=== PATIENT | male | born 1925 | race Caucasian/White ===

== ENCOUNTER → 2016-03-01 | Outpatient (CLI) | payer MEDICARE, BC ==
--- NOTE | 2016-03-01 15:14 | RADRPT ---
PROCEDURE: XR Pelvis and Hips. CLINICAL INDICATION: Pelvic pain. Bilateral hip pain. TECHNIQUE: Five views. Frontal pelvis. Frontal and lateral right hip. Frontal and lateral left hip. COMPARISON: 05/13/2014. FINDINGS: There is no fracture or dislocation. The soft tissues are normal. There are severe degenerative changes of both hips with large osteophytes and joint space narrowing, slightly worse than seen previously. There are degenerative changes of the lower lumbar spine. There is no lytic or blastic lesion. There is a stimulator device overlying the lower right hip. IMPRESSION: 1. Severe degenerative changes of the hips, slightly worse than seen previously. 2. Degenerative changes of the lower lumbar spine. 3. Stimulator device overlying the lower right hip. RPTAT: QQ .Josesito Ding MD, MD Date Time Electronically viewed and signed by .Josesito Ding MD, MD on 03/01/2016 15:14 .R/
== END | disposition home or self-care (01) ==
LOC: HKI 14:13
PROVIDERS: ATTEND Orthopaedic Surgery
DX: M16.0 Bilateral primary osteoarthritis of hip (principal); M17.0 Bilateral primary osteoarthritis of knee; M51.36 Other intervertebral disc degeneration, lumbar region; M54.16 Radiculopathy, lumbar region
CPT/HCPCS: 73523; G0463

== ENCOUNTER → 2016-03-29 | Outpatient (CLI) | payer MEDICARE, BC ==
[~2016-03-29] MED LIST: ATOR10TA65 PO; VIT1TABL85 PO
--- NOTE | 2016-03-29 11:59 | RADRPT ---
PROCEDURE: XR pelvis/left hip. CLINICAL INDICATION: Hip pain TECHNIQUE: AP pelvis/AP and lateral left hip views performed. COMPARISON: No prior studies are available for comparison. FINDINGS: There is a stimulator implant overlying the right hip. There is severe bilateral hip osteoarthrosis. This is associated with joint space narrowing, subchon dral sclerosis, subchondral cyst formation and osteophytosis. There is severe lower lumbar degenerat angle disk disease There is normal osseous mineralization. No fractures or osseous lesions are ident ified. The soft tissues are unremarkable. IMPRESSION: Severe bilateral hip osteoarthrosis. Severe lower lumbar degenerative disk disease RPTAT: HGDB .Gerber Montalvo MD, MD Date Time Electronically viewed and signed by .Gerber Montalvo MD, on 03/29/2016 11:59 .B/
== END | disposition home or self-care (01) ==
LOC: HKI 10:23
PROVIDERS: ATTEND Orthopaedic Surgery
DX: Z01.818 Encounter for other preprocedural examination (principal); M16.0 Bilateral primary osteoarthritis of hip; M17.0 Bilateral primary osteoarthritis of knee; M51.36 Other intervertebral disc degeneration, lumbar region; M54.16 Radiculopathy, lumbar region
CPT/HCPCS: 73502; G0463

== ENCOUNTER 2016-04-04 05:50 | Inpatient (IN) | payer MEDICARE, BC ==
[2016-04-03 09:44] VITALS: BMI 25.4
[2016-04-04] VITALS (24 sets, daily range): BP systolic 109–159; BP diastolic 58–86; PULSE 50–62; RESP 10–18; Ht 182.9 cm; Wt 84.1 kg
[~2016-04-04] VITALS: Ht 182.9 cm; Wt 84.1 kg
[~2016-04-04 05:50] MED LIST changes: -VIT1TABL85 PO
[2016-04-04] MEDS ORDERED: CELECOXIB 400 MG PO X1 DOSE PO ONE (06:00)
[2016-04-04] MEDS ORDERED: LACTATED RINGER'S 1,000 ML IV SCH (06:00)
[2016-04-04] MEDS ORDERED: oxyCODONE (CR) 10 MG TAB [oxyCONTIN] X1 DOSE PO ONE (06:00)
[2016-04-04] MEDS ORDERED: CEFAZOLIN 2GM/50 ML (PMX) 50 ML X1 BEFORE INCISION IVPB ONE (06:00)
[2016-04-04] MEDS ORDERED: traMADOL 50 MG TAB X 1 DOSE PO ONE (06:00)
[2016-04-04] MEDS ORDERED: TRANEXAMIC ACID IV ONE (06:00)
[2016-04-04] MEDS ORDERED: SOD CHLORIDE 0.9% IV ONE (06:00)
[2016-04-04] MEDS ORDERED: PAIN COCKTAIL-CEFUROXIME IRR SCH ×7 (06:30)
[2016-04-04] MEDS ORDERED: PREGABALIN 300 MG PO X1 PO ONE (06:30)
[2016-04-04] MEDS ORDERED: ATOR10TA65 PO (06:38)
[2016-04-04] MEDS ORDERED: VIT1TABL85 PO (06:38)
[2016-04-04] MEDS ORDERED: BACITRACIN 50000 UNITS INJ ONE (06:42)
[2016-04-04] MEDS ORDERED: PROPOFOL 0 ML ONE (06:52)
[2016-04-04] MEDS ORDERED: ONDANSETRON 4 MG INJ ONE (06:52)
[2016-04-04] MEDS ORDERED: DEXAMETHASONE 4 MG/ML 1 ML INJ ONE (06:52)
[2016-04-04] MEDS ORDERED: METOCLOPRAMIDE 10 MG INJ ONE (06:52)
[2016-04-04] MEDS ORDERED: POLYMYXIN B 500000 UNIT INJ ONE (06:53)
[2016-04-04] MEDS ORDERED: SODIUM CL BACTERIOSTATIC 30 ML INJ ONE (06:53)
[2016-04-04] MEDS ORDERED: VANCOMYCIN 1 GM INJ ONE (06:53)
[2016-04-04] MEDS ORDERED: HEPARIN 1000 UNITS/ML 10 ML INJ ONE (06:58)
[2016-04-04] MEDS ORDERED: BUPIVACAINE LIPOSOME/PF 266 MG/20 ML VIAL INFIL SCH (07:00)
[2016-04-04] MEDS ORDERED: TRANEXAMIC ACID 840 MG in SOD CHLORIDE 0.9% 100 ML IVPB SCH (07:00)
[2016-04-04] MEDS ORDERED: EXPAREL NOTE (BUPIVICAINE LIPOSOMAL) XX SCH (07:00)
[2016-04-04] MEDS ORDERED: MIDAZOLAM 1 MG/ML 2 ML INJ ONE (07:03)
--- NOTE | 2016-04-04 07:04 | HPN ---
Date/Time of Note Date/Time of Note DATE: 04/04/16 TIME: 07:04 Interval H&P Admission Note Pt. seen H&P reviewed: No system changes SAVANNAH BRITO PA-C Apr 04, 2016 07:04
[2016-04-04 07:38] LABS: ADD UMIC YES; URINE BILIRUBIN (Dip) NEGATIVE (NEGATIVE); URINE BLOOD (Dip) NEGATIVE (NEGATIVE); URINE COLOR LT. YELLOW (YELLOW); URINE GLUCOSE (Dip) NEGATIVE (NEGATIVE); URINE KETONES (Dip) NEGATIVE (NEGATIVE); URINE LEUKOCYTE ESTERASE (Dip) TRACE (NEGATIVE); URINE NITRITE (Dip) NEGATIVE (NEGATIVE); URINE TOTAL PROTEIN (Dip) NEGATIVE (NEGATIVE); URINE UROBILINOGEN (Dip) 0.2 E.U./dL (0.1-1.0)
[2016-04-04] MEDS ORDERED: PROPOFOL 100 ML ONE (07:54)
[2016-04-04] MEDS ORDERED: EPHEDrine SULFATE 50 MG/5 ML SYG ONE (07:54)
[2016-04-04 08:10] LABS: BACTERIA,URINE RARE; URINE RBCS NONE SEEN /HPF (0)
[2016-04-04] MEDS ORDERED: PROPOFOL 20 ML ONE (09:44)
[2016-04-04] MEDS ORDERED: DIPHENHYDRAMINE 50 MG INJ IV PRN (10:00)
[2016-04-04] MEDS ORDERED: MEPERIDINE 25 MG INJ IV PRN (10:00)
[2016-04-04] MEDS ORDERED: ONDANSETRON 4 MG INJ IV PRN ×2 (10:00→10:30)
[2016-04-04] MEDS ORDERED: OXYCODONE/ACETAMINOPHEN (5/325) TAB PO PRN ×2 (10:00)
[2016-04-04] MEDS ORDERED: METOCLOPRAMIDE 10 MG INJ IV PRN (10:00)
[2016-04-04] MEDS ORDERED: HYDROmorphONE (0.2 MG/ML) 10ML SYG IV PRN ×3 (10:00)
[2016-04-04] MEDS ORDERED: BISACODYL 10 MG SUPP PR PRN (10:30)
[2016-04-04] MEDS ORDERED: oxyCODONE 5 MG TAB PO PRN ×2 (10:30)
[2016-04-04] MEDS ORDERED: NACL 0.9% 3 ML SYG IV SCH (10:30)
[2016-04-04] MEDS ORDERED: ASPIRIN (EC) 325 MG TAB PO ONE (10:30)
[2016-04-04] MEDS ORDERED: DIPHENHYDRAMINE 25 MG CAP PO PRN (10:30)
[2016-04-04] MEDS ORDERED: NA PHOSPHATE/BIPHOS 133 ML ENEMA PR PRN (10:30)
[2016-04-04] MEDS ORDERED: HYDROmorphONE 1 MG/ML SYG IV PRN (10:30)
--- NOTE | 2016-04-04 10:40 | OPPN ---
Date/Time of Note Date/Time of Note DATE: 04/04/16 TIME: 10:38 Operative/Procedure Note Dictation # [id number] Pre-Operative Diagnosis Left Hip OA Post-Operative Diagnosis Same Procedure Left Anterior EUSEBIO Surgeon: GEORGIA RUSSELL MD Heel Cutter: SAVANNAH BRITO PA-C Anesthesiologist: SOPHIA FELIX MD Findings Severe OA Blood Usage/Administration 150 cc autologous cell saver blood Implants/Grafts Depuy EUSEBIO Estimated blood loss: other Drains Hemovac x 1 Specimens Femoral head Complications: None Anesthesia type: spinal GEORGIA RUSSELL MD Apr 04, 2016 10:40
--- NOTE | 2016-04-04 10:41 | PN ---
Date/Time of Note Date/Time of Note DATE: 04/04/16 TIME: 10:39 Assessment/Plan Lines/Catheters IV Catheter Type (from Nrsg): Peripheral IV Assessment/Plan Assessment/Plan Stable in PACU, s/p left anterior EUSEBIO -cont abx -pain meds -ASA/SCDs for DVT prophylaxis -OOB with PT -check AM labs -d/c rojas in AM XR of the left hip is pending at this time Subjective 24 Hr Interval Summary Doing well in PACU. Complaining of mild pain. Moving all extremities. Drain inadvertently pulled out upon transfer of patient. Exam/Review of Systems Vital Signs Vitals Vital Signs Date Time Temp Pulse Resp B/P Pulse Ox O2 Delivery O2 Flow Rate FiO2 04/04/16 06:39 97.2 56 18 150/77 97 Room Air Exam Free Text/Dictation Dressing dry Incision clean, dry, and intact without redness or drainage 5/5 Quadriceps, Tibialis Anterior, EHL, Gastroc, Soleus, Peroneals Normal sensation Palpable DT/PT, CR <2 sec No distal edema SAVANNAH BRITO PA-C Apr 04, 2016 10:41
[2016-04-04] MEDS: CEFAZOLIN 2 GM/50 ML (PMX) 50 ML IVPB SCH ×2 (11:16→18:55)
--- NOTE | 2016-04-04 11:19 | OPR ---
DATE OF OPERATION: 04/04/2016 PREOPERATIVE DIAGNOSIS: Left hip osteoarthritis. POSTOPERATIVE DIAGNOSIS: Left hip osteoarthritis. OPERATION PERFORMED: Left anterior total hip arthroplasty. SURGEON: Georgia Brown MD STREET FLUSHER DRIVER: HARRY Mendenhall COMPONENTS USED: DePuy size 56 mm Gription pinnacle cup, 56/36 neutral AltrX polyethylene liner, size 7 high offset Actis stem, 36+ 5 ceramic head. ANESTHESIA: Spinal plus general endotracheal intubation plus paratracheal injection. ANESTHESIOLOGIST: Dr. Granados ESTIMATED BLOOD LOSS: 400 cc INTRAVENOUS FLUIDS: Crystalloid 2 L and 150 mL of autologous Cell Saver blood. SPECIMENS: Femoral head. DRAINS: Hemovac x1. COMPLICATIONS: None. DISPOSITION: The patient tolerated the procedure well and was taken to the recovery room in stable condition. INDICATIONS: The patient is an 89-year-old gentleman who has had progressive worsening pain in the left hip with radiographic evidence of severe osteoarthritis. He has failed nonsurgical means of treatment to control his pain, including activity modifications, pain medications and ambulatory assist devices. Despite these measures, he has had worsening pain and I felt he would benefit from a total hip arthroplasty through an anterior approach. I felt the patient would benefit from a total hip arthroplasty through an anterior approach. The risks, benefits, and alternatives of the procedure were explained in detail to the patient. I explained the risks of the surgery to include, but not be limited to: bleeding and possible need for blood transfusion; infection; pain; stiffness; neurovascular injury with possible numbness, weakness, and/or paralysis anywhere from the hip down to the toes; fracture; instability; dislocation; leg length inequality; wear and/or loosening of the prosthesis and possible need for future revision; blood clots; pulmonary embolism; and anesthetic complications such as heart attack, stroke, GI bleed, pneumonia, and/ or . Ample time was allowed for the patient to ask questions, all of which were addressed and answered. The patient understood the risks involved and wished to proceed. Informed consent was signed prior to the procedure. PROCEDURE: The patient's left hip was initialed with a marking pen in the preoperative area to identify the correct operative site. The patient was brought to the operating room and transferred from the [facility] to the [facility] where a spinal anesthetic was administered. The patient was then anesthetized and intubated. A Alexander catheter was placed. Both feet were placed into well-padded boots which were then placed into the leg holders of the traction booms. A timeout was performed to confirm that the left side was the correct operative site. The patient was given 2 g of intravenous Ancef within one hour prior to the procedure. The operative hip was prepped and draped in the usual sterile fashion. A 10 cm oblique incision was made over the anterior aspect of the hip and carried down through subcutaneous tissue and fat with sharp dissection. The tensor fascia kenneth was incised along the length of the wound. The tensor fascia muscle was retracted laterally and the sartorius medially. The anterior circumflex vessels were identified and tied off with 2-0 silk suture and coagulated with the [employer] agricultural economics teacher. The rectus femoris was elevated off the anterior capsule and an anterior capsulectomy performed. A femoral neck osteotomy was made and the head removed from the acetabulum. The acetabulum was denuded of cartilage circumferentially, as was the femoral head. Retractors were placed around the acetabulum. The remnants of the labrum and ligamentum teres were excised. I reamed the acetabulum to the medial wall and then went into an anatomic position and increased the reamer size in 2 mm increments until I got a good bite and was down to bleeding subchondral bone. The [place] cup was opened and impacted into the acetabulum and sat flush circumferentially, getting a good bite. C-arm imaging showed it had about 40 to 45 degrees of abduction and 20 degrees of anteversion. The real liner was opened and impacted into the acetabulum and sat flush circumferentially. Attention was turned towards the femur. The operative leg was carefully lowered to the floor with the leg adducted. The foot was then externally rotated to approximately 110 degrees. A posteromedial release was performed to optimize exposure. The femoral hook was placed underneath the proximal femur and the hydraulic lift was then used to elevate the femur up out of the wound. The christiano cutter osteotome was used to remove the remaining overhanging greater trochanter. The femur was then broached, going up in one size increments until it sat flush with the neck cut and a stable fit was achieved. The trial neck and head were assembled and reduced into the acetabulum. Fluoroscopic imaging showed the components to be in good position and the leg lengths and offsets to be equal. At this point, the trial was dislocated and the trial broach removed. The canal was irrigated and dried. The real stem was opened and impacted into the femur. The trunnion was irrigated and dried, and the real femoral head was impacted onto the trunnion, and reduced into the acetabulum. The soft tissues were infiltrated with a mixture of 150 mg of 0.5% Bupivacaine, 8 mg of Duramorph, 300 mcg of epinephrine, 30 mg of Toradol, 100 mcg of clonidine, 750 mg of cefuroxime and 86 mL of normal saline, followed by an injection of 266 mg of liposomal Bupivacaine. At this point the hip was irrigated with a mixture of betadine/saline and then antibiotic saline with pulsatile lavage. A Hemovac drain was placed in the deep portion of the wound and brought out the anterolateral thigh. There was good hemostasis. The tensor fascia kenneth was repaired with a running #1 Vicryl. The deep fat layer was irrigated and closed with 2-0 Stratafix and the subcutaneous layer closed with 3 -0 Stratafix and the skin was sealed with Prineo Dermabond. The drain was secured with 3-0 nylon. The sponge and needle counts were correct at the end of the case. The wound was covered with an occlusive dressing. The patient was awakened, extubated, and taken to the recovery room in stable condition. Dictated By: GEORGIA ANGULO/KAYLAN Conf#: [id number] DID#: [id number] MTDD
--- NOTE | 2016-04-04 11:36 | CONS ---
DATE OF ADMISSION: 04/04/2016 DATE OF CONSULTATION: 04/04/2016 TYPE OF CONSULTATION: Thank you very much for allowing me to evaluate this 89-year-old male who jus t underwent left total hip arthroplasty. HISTORICAL EVENTS: As you well know, this patient has had progressive disabling pain involving his above-mentioned hip and for this elected to proceed with surgical intervention. In recovery, he is comfortable without cough, wheezing, shortness of breath, nausea, vomiting, abdominal or chest pain. PAST MEDICAL HISTORY: Unremarkable except for hyperlipidemia, without history of diabetes, coronary artery disease or hypertension. Positive for degenerative arthritis and spinal stenosis, having a lumbar back stimulator. MEDICATIONS: Include Lipitor 10 mg per day. PHYSICAL EXAMINATION: GENERAL: Reveals a spry male in no acute distress. VITAL SIGNS: BP 122/80, pulse 70, respirations are 20, he was afebrile. EYES: Extraocular muscles were full. NOSE, MOUTH, AND THROAT: Normal. NECK: Supple. There was no jugular venous distention, thyroid enlargement or adenopathy. Carotids 2+. LUNGS: Clear. HEART: Rhythm regular, I/ systolic murmur. No third or fourth sound. ABDOMEN: Nontender. Liver and spleen were not palpable. No masses or tenderness were noted. EXTREMITIES: No edema. Calves nontender. IMPRESSION: 1. Stable postop left hip replacement. 2. History of hyperlipidemia. We will continue statin. 3. Will evaluate daily for signs and symptoms of thromboembolic disease despite appropriate DVT pro phylaxis. Dictated By: GLENROY KAPADIA/KAYLAN Conf#: [id number] DID#: [id number]
[2016-04-04] MEDS: ACETAMINOPHEN 1000MG/100ML IV 100 ML IVPB SCH ×3 (11:44→23:38)
[2016-04-04] MEDS: traMADol 50 MG TAB PO SCH ×3 (11:46→23:38)
--- NOTE | 2016-04-04 12:23 | RADRPT ---
PROCEDURE: XR Pelvis. CLINICAL INDICATION: Hip pain TECHNIQUE: Single AP view performed. COMPARISON: No prior studies are available for comparison. FINDINGS: There is a postoperative left total hip replacement. There is no evidence of loosening of the prosth esis. There is severe right hip osteoarthrosis. This is associated with joint space narrowing, subchondral sclerosis, subchondral cyst formation and osteophytosis. There is normal osseous mineralization. No fractures or osseous lesions are identified. There are postoperative soft tissue changes. Stimul ator implant overlying right hip. IMPRESSION: Postoperative left total hip replacement Postoperative soft tissue changes Severe right hip osteoarthrosis. RPTAT: HGDB .Gerber Montalvo MD, MD Date Time Electronically viewed and signed by .Gerber Montalvo MD, on 04/04/2016 12:23 .B/
--- NOTE | 2016-04-04 12:25 | RADRPT ---
PROCEDURE: XR left hip. CLINICAL INDICATION: Hip pain/total hip replacement TECHNIQUE: AP view available for review. COMPARISON: None available FINDINGS: There is a postoperative left total hip replacement. There is no evidence of loosening of the prosth esis. There is normal mineralization, architecture and alignment. No fractures are identified. No osseous lesions are present. The joints are unremarkable. There are postoperative soft tissue sequeira ges. IMPRESSION: Postoperative left total hip replacement Postoperative soft tissue changes Otherwise an unremarkable examination RPTAT: HGDB .Gerber Montalvo MD, MD Date Time Electronically viewed and signed by .Gerber Montalvo MD, MD on 04/04/2016 12:24 .B/
[2016-04-04 12:37] LABS: HEMATOCRIT 35.6 % (42.0-52.0); HEMOGLOBIN 11.9 g/dl (14.0-18.0)
[2016-04-04 12:48] LABS: CREATININE 0.93 mg/dl (0.61-1.24); POTASSIUM 4.1 mmol/L (3.5-5.1)
[2016-04-04 12:49] LABS: CALCIUM 8.4 mg/dl (8.4-10.2)
[2016-04-04] MEDS ORDERED: TRANEXAMIC ACID 840 MG in SOD CHLORIDE 0.9% 100 ML IVPB ONE ×3 (13:30→22:30)
--- NOTE | 2016-04-04 13:45 | RADRPT ---
PROCEDURE: Left hip x-rays series CLINICAL INDICATION: Arthroplasty TECHNIQUE: 14 images obtained intraoperatively during a hip arthroplasty procedure. COMPARISON: None available FINDINGS: 14 x-ray images were obtained intraoperatively for localization during a hip hemiarthroplasty. 48 s econds of fluoroscopy time was utilized during the procedure. There is an unremarkable postoperative left total hip replacement.. IMPRESSION: 14 x-ray images obtained intraoperatively. 48 seconds of fluoroscopy time was utilized Unremarkable postoperative left total hip replacement .Gerber Montalvo MD, MD Date Time Electronically viewed and signed by .Gerber Montalvo MD, on 04/04/2016 13:45 .B/
[2016-04-04] MEDS: LACTATED RINGER'S 1,000 ML IV SCH ×2 (16:45→17:45)
[2016-04-04] MEDS: PANTOPRAZOLE (EC) 40 MG TAB PO SCH (17:51)
[2016-04-04] MEDS ORDERED: ATORVASTATIN 10 MG TAB PO SCH (21:00)
[2016-04-04] MEDS: PREGABALIN 25 MG CAP PO SCH (21:05)
[2016-04-04] MEDS: DOCUSATE SODIUM 100 MG CAP PO SCH (21:05)
[2016-04-04] MEDS: ATORVASTATIN 10 MG TAB PO SCH (21:05)
[2016-04-05] VITALS: BP 100/55; RESP 18
[2016-04-05] MEDS: CEFAZOLIN 2 GM/50 ML (PMX) 50 ML IVPB SCH (02:27)
[2016-04-05] MEDS: LACTATED RINGER'S 1,000 ML IV SCH ×3 (05:25→18:28)
[2016-04-05] MEDS: ACETAMINOPHEN 1000MG/100ML IV 100 ML IVPB SCH (05:26)
[2016-04-05] MEDS: traMADol 50 MG TAB PO SCH ×4 (05:27→23:37)
[2016-04-05] MEDS: PANTOPRAZOLE (EC) 40 MG TAB PO SCH ×2 (05:28→18:31)
[2016-04-05 05:40] LABS: HEMATOCRIT 32.5 % (42.0-52.0)
[2016-04-05 06:18] LABS: POTASSIUM 4.3 mmol/L (3.5-5.1)
[2016-04-05 06:20] LABS: CREATININE 0.78 mg/dl (0.61-1.24)
[2016-04-05 06:21] LABS: CALCIUM 8.2 mg/dl (8.4-10.2)
[2016-04-05 06:28] VITALS: BP 121/58; PULSE 56; RESP 18
--- NOTE | 2016-04-05 07:01 | PREOPHP ---
DATE OF ADMISSION: 04/04/2016 REQUESTING PHYSICIAN: Dr. Evaristo Russell REASON FOR CONSULTATION: Medical clearance. HISTORY OF PRESENT ILLNESS: Mr. Smith is an 89-year-old male who is scheduled for left total hip replacement for degenerative joint disease by Dr. Russell. He has a history of degenerative arthrit is of both hips, left worse than right, and walks with a cane. He is off anti-inflammatories for th e past 7 days. PAST MEDICAL HISTORY: Hypercholesterolemia and is on Lipitor 10 mg daily. ALLERGIES TO MEDICATIONS: NONE. PAST MEDICAL ILLNESSES: Hypercholesterolemia, degenerative joint disease. OPERATIONS: In the past, bilateral cataract extractions, suprapubic prostatectomy for BPH and biops y of his thyroid for a nodule in 2013. PERSONAL HABITS: Tobacco none. Alcohol social. Caffeine- 1 to 2 cups per day. FAMILY HISTORY: Noncontributory. Patient's mother at 90 and father +90. He has 3 chil dren living and healthy. REVIEW OF SYSTEMS: GENERAL: Unremarkable. HEAD: No headaches or dizziness. EARS: Diminished hearing bilaterally. NOSE, MOUTH AND THROAT: Unremarkable. EYES: Reading intact with reading glasses. CARDIOPULMONARY: No chest pain, shortness of breath or palpitations. GI: No indigestion. Has 2 bowel movements per day. : Nocturia x2 status post suprapubic prostatectomy. MUSCULOSKELETAL: See present illness. HEME: Negative. PHYSICAL EXAMINATION: VITAL SIGNS: Blood pressure 150/90, BMI 26, weight 185 pounds, height 72 inches, temperature 97.9. HEAD: Normocephalic. EYES: There is ptosis of the left upper eyelid, otherwise negative. EARS: Canals clear. Drums normal. Gross hearing intact. NOSE, MOUTH AND THROAT: No abnormalities. NECK: There is a 5 cm lipoma on the neck. CHEST: Clear to auscultation and percussion. HEART: Regular rhythm. No murmurs, rubs, heaves or gallops. ABDOMEN: No hepatosplenomegaly or masses. Bowel sounds normoactive. No tenderness. GENITOURINARY: Negative 05/2015. MUSCULOSKELETAL: Atrophy left calf. Pain on internal and external rotation both hips with decrease d range of motion. NEUROLOGIC: Absent Achilles. Reflexes otherwise no focal deficits. DIAGNOSTIC STUDIES: Chest x-ray is within normal limits. 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 LABORATORY STUDIES: Are attached and are stable. PTT Pro time normal. CBC within normal limits. Chemistry panel normal. IMPRESSION: 1. Degenerative arthritis, both hips for left total hip arthroplasty. 2. Hypercholesterolemia. The patient is cleared for surgery and anesthesia per Dr. Sandoval. Urinalysis was not done and will b e done at the hospital. Dr.Gerald Werner dictaing Pre-Op HP for Dr. Nabil Sandoval for Dr. Evaristo Russell. Dictated By: EVARISTO RUSSELL MD EZ/NTS Conf#: [id number] DID#: [id number]
--- NOTE | 2016-04-05 07:35 | PDOCDIS ---
Discharge Instructions DIAGNOSIS Discharge Diagnosis: s/p left EUSEBIO CONDITION Patient Condition: Good HOME CARE INSTRUCTIONS: Diet Instructions: Regular ACTIVITY: Activity Restrictions: Slowly Increase Activity Rest between Activity Avoid heavy lifting No Sexual Activity Do not operate Machinery Do not operate Power Tool Avoid Heavy Housework Keep Limb Elevated FOLLOW UP/APPOINTMENTS Appointments follow up with Dr. Brown in the office on 04/15/16 OTHER ORDERS: Other Orders: S/P Anterior EUSEBIO Physical Therapy: Three times per week at home x 2 weeks Daily in Rehab/SNF (if applicable) WB STATUS: WBAT Strengthening exercises for both upper and un-operated lower extremities. 1. Gait training with front wheeled walker 2. Wide base gait, no pivot turns. 3. Abductor strengthening. 4. Quadriceps and hamstring strengthening. 5. May switch to cane in contra lateral hand 6 weeks after surgery. 6. Physical Therapy can open case if nursing is not available. 7. Ice Packs while at rest to surgical wound for 20 minutes, 3 times/day. 8. Patient requires mobile SCDs to reduce risk of developing DVT following EUSEBIO. Patient will use the mobile SCDs for 30 days postoperatively. Hip Precautions: No posterior hip precautions. Bathing assistance by home health aide twice weekly if Medicare patient. Occupational Therapy: Evaluation for assistive devices and ADL training. Wound Care: Keep incision dry & covered with Tegaderm until first visit with Dr. Brown Anticoagulation Orders: Enteric Coated Aspirin 325 mg po bid x 6 weeks from date of surgery Follow-up:Call for an appointment with Dr. Brown in 1 week after discharged from hospital at DME Orders: ANDREWS, 3-in-1 Commode, Mobile SCDs SAVANNAH BRITO PA-C Apr 05, 2016 07:35
[2016-04-05] MEDS ORDERED: PANT40TA4 PO (07:36)
[2016-04-05] MEDS ORDERED: ASPI325T32 PO (07:36)
[2016-04-05] MEDS ORDERED: TRAM50TA2 PO (07:36)
[2016-04-05] MEDS ORDERED: HYDR-906 PO (07:36)
[2016-04-05 08:07] VITALS: BP 112/56; RESP 18
--- NOTE | 2016-04-05 08:11 | PN ---
Date/Time of Note Date/Time of Note DATE: 04/05/16 TIME: 08:09 Assessment/Plan Lines/Catheters IV Catheter Type (from Nrsg): Peripheral IV Alexander in Place (from Nrsg): Yes Assessment/Plan Assessment/Plan Stable POD #1, s/p left anterior EUSEBIO -D/C abx -pain meds -ice packs over incision to minimize ecchymosis and swelling -ASA/SCDs -OOB with PT -check AM labs -d/c planning. Possible d/c versus home tomorrow or friday Subjective 24 Hr Interval Summary Doing well. No acute overnight events. Denies any pain. Unclear if he began PT yesterday as patient does not recall but there is a PT note stating he walked 30ft. VSS, afebrile. Exam/Review of Systems Vital Signs Vitals Vital Signs Date Time Temp Pulse Resp B/P Pulse Ox O2 Delivery O2 Flow Rate FiO2 04/05/16 08:07 97.8 57 18 112/56 99 04/05/16 06:28 Nasal Cannula 2.0 Intake and Output 04/04/16 04/04/16 04/05/16 15:00 23:00 07:00 Intake Total 2150 ml 308.4 ml 1750 ml Output Total 620 ml 350 ml 1100 ml Balance 1530 ml -41.6 ml 650 ml Exam Free Text/Dictation Moderate ecchymosis around the incision, no redness or warmth to touch Dressing dry Incision clean, dry, and intact without redness or drainage 5/5 Quadriceps, Tibialis Anterior, EHL, Gastroc, Soleus, Peroneals Normal sensation Palpable DT/PT, CR <2 sec No distal edema Results Result Diagram: 04/05/16 0413 04/05/16 0413 SAVANNAH BRITO PA-C Apr 05, 2016 08:11
--- NOTE | 2016-04-05 08:40 | CONS ---
Date/Time of Note Date/Time of Note DATE: 04/05/16 TIME: 08:39 Assessment/Plan Assessment/Plan Additional Assessment/Plan 1. Stable postop left hip replacement, labs rev 2. History of hyperlipidemia, statin has been cont Consultation Date/Type/Reason Admit Date/Time Apr 04, 2016 at 05:50 Initial Consult Date Detailed Summary Respiratory: No pleuritic pain, No shortness of breath Cardiovascular: No chest pain Gastrointestinal: no complaints Genitourinary: other (rojas in place) Musculoskeletal: bone/joint pain (mild left hip pain) Exam/Review of Systems Vital Signs Vitals Vital Signs Date Time Temp Pulse Resp B/P Pulse Ox O2 Delivery O2 Flow Rate FiO2 04/05/16 08:07 97.8 57 18 112/56 99 04/05/16 06:28 Nasal Cannula 2.0 Intake and Output 04/04/16 04/04/16 04/05/16 15:00 23:00 07:00 Intake Total 2150 ml 308.4 ml 1750 ml Output Total 620 ml 350 ml 1100 ml Balance 1530 ml -41.6 ml 650 ml Exam Neck: No jvd Respiratory: clear to auscultation Cardiovascular: regular rate and rhythm Gastrointestinal: soft Extremities: No edema (and no calf tend bilat) Results Result Diagram: 04/05/16 0413 04/05/16 0413 Results 24 hrs Laboratory Tests Test 04/04/16 12:21 04/05/16 04:13 Anion Gap 12 12 Blood Urea Nitrogen 19 17 Calcium Level 8.4 8.2 L Carbon Dioxide Level 26 26 Chloride Level 107 105 Creatinine 0.93 0.78 Glucose Level 126 104 Hematocrit 35.6 L 32.5 L Hemoglobin 11.9 L 11.0 L Potassium Level 4.1 4.3 Sodium Level 141 139 Medications Medications Current Medications Miscellaneous Information 1 ea NOTE XX ; Start 04/04/16 at 07:00; Stop 04/08/16 at 06:59 Atorvastatin Calcium 10 mg 10 mg QHS PO Last administered on 04/04/16 21:05; Admin Dose 10 MG; Start 04/04/16 at 21:00 Lactated Ringer's (Lr) 1,000 ml @ 125 mls/hr Q8H IV Last administered on 05:25; Admin Dose 125 MLS/HR; Start 04/04/16 at 10:28 Celecoxib 200 mg 200 mg DAILY PO ; Start 04/05/16 at 09:00 Acetaminophen (Ofirmev 1000mg/ 100ml Iv) 100 ml @ 400 mls/hr Q6 IVPB Last administered on 04/05/16 05:26; Admin Dose 400 MLS/HR; Start 04/04/16 at 12:00 ; Stop 04/05/16 at 11:59 Tramadol HCl (Ultram) 50 mg Q6 PO Last administered on 04/05/16 05:27; Admin Dose 50 MG; Start 04/04/16 at 12:00; Stop 04/07/16 at 11:59 Oxycodone HCl (Roxicodone) 5 mg Q4H PRN PO PAIN LEVEL 1-3; Start 04/04/16 at 10 :30 Oxycodone HCl (Roxicodone) 10 mg Q4H PRN PO PAIN LEVEL 4-7; Start 04/04/16 at 10:30 Hydromorphone HCl (Dilaudid) 1 mg Q3H PRN IV PAIN LEVEL 8-10; Start 04/04/16 at 10:30 Ondansetron HCl (Zofran Inj) 4 mg Q6H PRN IV NAUSEA AND/OR VOMITING; Start at 10:30 Bisacodyl (Dulcolax Supp) 10 mg Q12H PRN [place] CONSTIPATION; Start 04/04/16 at 10: 30 Magnesium Hydroxide (Milk Of Mag) 30 ml BID PRN PO CONSTIPATION; Start at 10:30 Sodium Biphosphate/ Sodium Phosphate (Fleet Enema) 133 ml DAILY PRN [place] CONSTIPATION; Start 04/04/16 at 10:30 Docusate Sodium (Colace) 100 mg BID PO Last administered on 04/04/16 21:05; Admin Dose 100 MG; Start 04/04/16 at 21:00 Diphenhydramine HCl (Benadryl) 25 mg Q6H PRN PO PRURITUS; Start 04/04/16 at 10: 30 Aspirin (Ecotrin) 325 mg BID PO ; Start 04/05/16 at 09:00 Pregabalin (Lyrica) 50 mg BID PO Last administered on 04/04/16 21:05; Admin Dose 50 MG; Start 04/04/16 at 21:00 Pantoprazole (Protonix Tab) 40 mg BID@06,18 PO Last administered on 04/05/16t 05:28; Admin Dose 40 MG; Start 04/04/16 at 18:00 GLENROY XIONG MD Apr 05, 2016 08:40
[2016-04-05] MEDS: PREGABALIN 25 MG CAP PO SCH ×2 (09:00→20:16)
[2016-04-05] MEDS: ASPIRIN (EC) 325 MG TAB PO SCH ×2 (09:00→20:16)
[2016-04-05] MEDS: DOCUSATE SODIUM 100 MG CAP PO SCH ×2 (09:00→20:16)
[2016-04-05] MEDS: CELECOXIB 200 MG CAP PO SCH (09:00)
[2016-04-05 09:14] LABS: ADD UMIC YES; URINE BILIRUBIN (Dip) NEGATIVE (NEGATIVE); URINE BLOOD (Dip) TRACE (NEGATIVE); URINE COLOR LT. YELLOW (YELLOW); URINE GLUCOSE (Dip) NEGATIVE (NEGATIVE); URINE KETONES (Dip) NEGATIVE (NEGATIVE); URINE LEUKOCYTE ESTERASE (Dip) NEGATIVE (NEGATIVE); URINE NITRITE (Dip) NEGATIVE (NEGATIVE); URINE TOTAL PROTEIN (Dip) NEGATIVE (NEGATIVE); URINE UROBILINOGEN (Dip) 0.2 E.U./dL (0.1-1.0)
[2016-04-05 09:31] LABS: BACTERIA,URINE RARE
--- NOTE | 2016-04-05 12:55 | PN ---
Date/Time of Note Date/Time of Note DATE: 04/05/16 TIME: 12:53 Assessment/Plan VTE Prophylaxis VTE Prophylaxis Intervention: SCD's Lines/Catheters IV Catheter Type (from Nrs): Saline Lock Urinary Cath still in place: No Subjective 24 Hr Interval Summary Free Text/Dictation Aneshesia Note:A 89 year amle s/p left hip replacement under GA and spinl. POD# 1 doing well. no N/V hedach,e. pain is controlled. no inflammation or infection at back Exam/Review of Systems Vital Signs Vitals Vital Signs Date Time Temp Pulse Resp B/P Pulse Ox O2 Delivery O2 Flow Rate FiO2 04/05/16 08:45 Nasal Cannula 04/05/16 08:07 97.8 57 18 112/56 99 04/05/16 06:28 2.0 Intake and Output 04/04/16 04/04/16 04/05/16 14:59 22:59 06:59 Intake Total 2150 ml 308.4 ml 1750 ml Output Total 620 ml 350 ml 1100 ml Balance 1530 ml -41.6 ml 650 ml Results Result Diagram: 04/05/16 0413 04/05/16 0413 Results 24 hrs Laboratory Tests Test 04/05/16 04:13 04/05/16 05:30 Anion Gap 12 Blood Urea Nitrogen 17 Calcium Level 8.2 L Carbon Dioxide Level 26 Chloride Level 105 Creatinine 0.78 Glucose Level 104 Hematocrit 32.5 L Hemoglobin 11.0 L Potassium Level 4.3 Sodium Level 139 Urine Bacteria RARE Urine Bilirubin NEGATIVE Urine Clarity CLEAR Urine Color LT. YELLOW Urine Epithelial Cells RARE Urine Glucose NEGATIVE Urine Hemoglobin TRACE Urine Ketones NEGATIVE Urine Leukocyte Esterase NEGATIVE Urine Microscopic RBC 2-5 Urine Microscopic WBC 0-2 Urine Nitrite NEGATIVE Urine Specific [place] 1.010 Urine Total Protein NEGATIVE Urine Urobilinogen 0.2 E.U./dL Urine pH 6.0 Medications Medications Current Medications Miscellaneous Information 1 ea NOTE XX ; Start 04/04/16 at 07:00; Stop 04/08/16 at 06:59 Atorvastatin Calcium 10 mg 10 mg QHS PO Last administered on 04/04/16 21:05; Admin Dose 10 MG; Start 04/04/16 at 21:00 Lactated Ringer's (Lr) 1,000 ml @ 125 mls/hr Q8H IV Last administered on 05:25; Admin Dose 125 MLS/HR; Start 04/04/16 at 10:28 Celecoxib (Celebrex) 200 mg DAILY PO Last administered on 04/05/16 09:00; Admin Dose 200 MG; Start 04/05/16 at 09:00 Tramadol HCl (Ultram) 50 mg Q6 PO Last administered on 04/05/16 11:56; Admin Dose 50 MG; Start 04/04/16 at 12:00; Stop 04/07/16 at 11:59 Oxycodone HCl (Roxicodone) 5 mg Q4H PRN PO PAIN LEVEL 1-3; Start 04/04/16 at 10 :30 Oxycodone HCl (Roxicodone) 10 mg Q4H PRN PO PAIN LEVEL 4-7; Start 04/04/16 at 10:30 Hydromorphone HCl (Dilaudid) 1 mg Q3H PRN IV PAIN LEVEL 8-10; Start 04/04/16 at 10:30 Ondansetron HCl (Zofran Inj) 4 mg Q6H PRN IV NAUSEA AND/OR VOMITING; Start at 10:30 Bisacodyl (Dulcolax Supp) 10 mg Q12H PRN [place] CONSTIPATION; Start 04/04/16 at 10: 30 Magnesium Hydroxide (Milk Of Mag) 30 ml BID PRN [place] CONSTIPATION; Start at 10:30 Sodium Biphosphate/ Sodium Phosphate (Fleet Enema) 133 ml DAILY PRN [place] CONSTIPATION; Start 04/04/16 at 10:30 Docusate Sodium (Colace) 100 mg BID PO Last administered on 04/05/16 09:00; Admin Dose 100 MG; Start 04/04/16 at 21:00 Diphenhydramine HCl (Benadryl) 25 mg Q6H PRN PO PRURITUS; Start 04/04/16 at 10: 30 Aspirin (Ecotrin) 325 mg BID PO Last administered on 04/05/16 09:00; Admin Dose 325 MG; Start 04/05/16 at 09:00 Pregabalin (Lyrica) 50 mg BID PO Last administered on 04/05/16 09:00; Admin Dose 50 MG; Start 04/04/16 at 21:00 Pantoprazole (Protonix Tab) 40 mg BID@ PO Last administered on 2/17/17at 05:28; Admin Dose 40 MG; Start 04/04/16 at 18:00 SOPHIA FELIX MD Apr 05, 2016 12:55
[2016-04-05 19:15] VITALS: BP 126/58; RESP 20
[2016-04-05] MEDS: ATORVASTATIN 10 MG TAB PO SCH (20:16)
[2016-04-05] MEDS: MAGNESIUM HYDROXIDE 30ML CUP PO PRN (20:23)
[2016-04-06] MEDS: LACTATED RINGER'S 1,000 ML IV SCH ×3 (02:28→18:28)
[2016-04-06 05:10] LABS: HEMATOCRIT 32.3 % (42.0-52.0); HEMOGLOBIN 10.9 g/dl (14.0-18.0)
[2016-04-06 05:22] LABS: POTASSIUM 3.9 mmol/L (3.5-5.1)
[2016-04-06 05:25] LABS: CREATININE 0.78 mg/dl (0.61-1.24)
[2016-04-06 05:26] LABS: CALCIUM 8.2 mg/dl (8.4-10.2)
[2016-04-06] MEDS: traMADol 50 MG TAB PO SCH ×3 (06:32→18:00)
[2016-04-06] MEDS: PANTOPRAZOLE (EC) 40 MG TAB PO SCH ×2 (06:32→18:00)
[2016-04-06] MEDS: MAGNESIUM HYDROXIDE 30ML CUP PO PRN (06:35)
[2016-04-06 07:53] VITALS: BP 117/58; RESP 16
[2016-04-06] MEDS: CELECOXIB 200 MG CAP PO SCH (09:02)
[2016-04-06] MEDS: DOCUSATE SODIUM 100 MG CAP PO SCH ×2 (09:02→20:55)
[2016-04-06] MEDS: ASPIRIN (EC) 325 MG TAB PO SCH ×2 (09:02→20:55)
[2016-04-06] MEDS: PREGABALIN 25 MG CAP PO SCH ×2 (09:17→20:54)
[2016-04-06] MEDS ORDERED: HYDROCODONE/APAP (5/325) TAB PO PRN (11:00)
--- NOTE | 2016-04-06 11:00 | PN ---
Date/Time of Note Date/Time of Note DATE: 04/06/16 TIME: 10:58 Assessment/Plan Lines/Catheters IV Catheter Type (from Nrsg): Saline Lock Alexander in Place (from Nrsg): No Assessment/Plan Assessment/Plan Stable POD #2, s/p left anterior EUSEBIO -pain meds -ASA/SCDs for DVT prophylaxis -OOB with PT -dressing changed -switch oxycodone to hydrocodone for pain control -apply ice over the left hip -d/c planning. Will likely go home tomorrow Subjective 24 Hr Interval Summary Doing well. No acute overnight events. Mild pain. Walked 250 feet with PT. Denies f/c. VSS, afebrile. Would like to stay one more day for pain control. Exam/Review of Systems Vital Signs Vitals Vital Signs Date Time Temp Pulse Resp B/P Pulse Ox O2 Delivery O2 Flow Rate FiO2 04/06/16 07:53 97.3 64 16 117/58 95 04/05/16 08:45 Nasal Cannula 04/05/16 06:28 2.0 Intake and Output 04/05/16 04/05/16 04/06/16 15:00 23:00 07:00 Intake Total 720 ml 600 ml Output Total 300 ml Balance 420 ml 600 ml Exam Free Text/Dictation Dressing dry Ecchymosis and soft tissue swelling improving Incision clean, dry, and intact without redness or drainage 5/5 Quadriceps, Tibialis Anterior, EHL, Gastroc, Soleus, Peroneals Normal sensation Palpable DT/PT, CR <2 sec No distal edema Results Result Diagram: 04/06/1643904/06/16439 SAVANNAH BRITO PA-C Apr 06, 2016 11:00
--- NOTE | 2016-04-06 11:29 | CONS ---
Date/Time of Note Date/Time of Note DATE: 04/06/16 TIME: 11:28 Assessment/Plan Assessment/Plan Additional Assessment/Plan 1. Doing well post op left hip replacement 2. Mild diff voiding, will ck post void residual Consultation Date/Type/Reason Admit Date/Time Apr 04, 2016 at 05:50 Detailed Summary Respiratory: No cough, No shortness of breath Cardiovascular: No chest pain Gastrointestinal: no complaints, other (sl diff voiding) Musculoskeletal: bone/joint pain (mild-mod left hip pain) Exam/Review of Systems Vital Signs Vitals Vital Signs Date Time Temp Pulse Resp B/P Pulse Ox O2 Delivery O2 Flow Rate FiO2 04/06/16 07:53 97.3 64 16 117/58 95 04/05/16 08:45 Nasal Cannula 04/05/16 06:28 2.0 Intake and Output 04/05/16 04/05/16 04/06/16 15:00 23:00 07:00 Intake Total 720 ml 600 ml Output Total 300 ml Balance 420 ml 600 ml Exam Neck: No jvd Respiratory: clear to auscultation Cardiovascular: regular rate and rhythm Gastrointestinal: soft Extremities: No edema (and no calf tend) Results Result Diagram: 04/06/16 0440 04/06/16 0440 Results 24 hrs Laboratory Tests Test 04/06/16 04:40 Anion Gap 10 Blood Urea Nitrogen 19 Calcium Level 8.2 L Carbon Dioxide Level 29 Chloride Level 104 Creatinine 0.78 Glucose Level 104 Hematocrit 32.3 L Hemoglobin 10.9 L Potassium Level 3.9 Sodium Level 139 Medications Medications Current Medications Miscellaneous Information 1 ea NOTE XX ; Start 04/04/16 at 07:00; Stop 04/08/16 at 06:59 Atorvastatin Calcium 10 mg 10 mg QHS PO Last administered on 04/05/16 20:16; Admin Dose 10 MG; Start 04/04/16 at 21:00 Lactated Ringer's (Lr) 1,000 ml @ 125 mls/hr Q8H IV Last administered on 05:25; Admin Dose 125 MLS/HR; Start 04/04/16 at 10:28 Celecoxib (Celebrex) 200 mg DAILY PO Last administered on 04/06/16 09:02; Admin Dose 200 MG; Start 04/05/16 at 09:00 Tramadol HCl (Ultram) 50 mg Q6 PO Last administered on 04/06/16 06:32; Admin Dose 50 MG; Start 04/04/16 at 12:00; Stop 04/07/16 at 11:59 Oxycodone HCl (Roxicodone) 10 mg Q4H PRN PO PAIN LEVEL 4-7; Start 04/04/16 at 10:30 Hydromorphone HCl (Dilaudid) 1 mg Q3H PRN IV PAIN LEVEL 8-10; Start 04/04/16 at 10:30 Ondansetron HCl (Zofran Inj) 4 mg Q6H PRN IV NAUSEA AND/OR VOMITING; Start at 10:30 Bisacodyl (Dulcolax Supp) 10 mg Q12H PRN [place] CONSTIPATION; Start 04/04/16 at 10: 30 Magnesium Hydroxide (Milk Of Mag) 30 ml BID PRN PO CONSTIPATION Last administered on 04/06/16 06:35; Admin Dose 30 ML; Start 04/04/16 at 10:30 Sodium Biphosphate/ Sodium Phosphate (Fleet Enema) 133 ml DAILY PRN [place] CONSTIPATION; Start 04/04/16 at 10:30 Docusate Sodium (Colace) 100 mg BID PO Last administered on 04/06/16 09:02; Admin Dose 100 MG; Start 04/04/16 at 21:00 Diphenhydramine HCl (Benadryl) 25 mg Q6H PRN PO PRURITUS; Start 04/04/16 at 10: 30 Aspirin (Ecotrin) 325 mg BID PO Last administered on 04/06/16 09:02; Admin Dose 325 MG; Start 04/05/16 at 09:00 Pregabalin (Lyrica) 50 mg BID PO Last administered on 04/06/16 09:17; Admin Dose 50 MG; Start 04/04/16 at 21:00 Pantoprazole (Protonix Tab) 40 mg BID@ PO Last administered on 04/06/16 06:32; Admin Dose 40 MG; Start 04/04/16 at 18:00 Acetaminophen/ Hydrocodone Bitart ([place] (5/325)) 1 tab Q4H PRN PO PAIN LEVEL 1 -5; Start 04/06/16 at 11:00 GLENROY XIONG MD Apr 06, 2016 11:29
[2016-04-06 20:21] VITALS: BP 136/64; RESP 17
[2016-04-06] MEDS: ATORVASTATIN 10 MG TAB PO SCH (20:55)
[2016-04-07] MEDS: traMADol 50 MG TAB PO SCH ×3 (00:10→12:44)
[2016-04-07] MEDS: LACTATED RINGER'S 1,000 ML IV SCH ×2 (02:28→09:11)
[2016-04-07 05:17] LABS: POTASSIUM 4.2 mmol/L (3.5-5.1)
[2016-04-07 05:19] LABS: CREATININE 0.8 mg/dl (0.61-1.24)
[2016-04-07 05:20] LABS: CALCIUM 8.3 mg/dl (8.4-10.2)
[2016-04-07 05:34] LABS: HEMATOCRIT 30.5 % (42.0-52.0); HEMOGLOBIN 10.2 g/dl (14.0-18.0)
[2016-04-07] MEDS: PANTOPRAZOLE (EC) 40 MG TAB PO SCH (06:13)
[2016-04-07 08:32] VITALS: BP 120/58; RESP 20
[2016-04-07] MEDS: CELECOXIB 200 MG CAP PO SCH (09:06)
[2016-04-07] MEDS: DOCUSATE SODIUM 100 MG CAP PO SCH (09:06)
[2016-04-07] MEDS: ASPIRIN (EC) 325 MG TAB PO SCH (09:07)
[2016-04-07] MEDS: PREGABALIN 25 MG CAP PO SCH (09:11)
--- NOTE | 2016-04-07 09:50 | PN ---
Date/Time of Note Date/Time of Note DATE: 04/07/16 TIME: 09:49 Assessment/Plan Lines/Catheters IV Catheter Type (from Nrsg): Saline Lock Alexander in Place (from Nrsg): No Assessment/Plan Assessment/Plan Stable POD #3, s/p left anterior EUSEBIO -pain meds -OOB with PT -ASA/SCDs for DVT prophylaxis -discharge home today -follow up in the office on 04/15/16 Subjective 24 Hr Interval Summary Doing well. No acute overnight events. Minimal pain. Progressing well with PT. Stable for d/c home today. Exam/Review of Systems Vital Signs Vitals Vital Signs Date Time Temp Pulse Resp B/P Pulse Ox O2 Delivery O2 Flow Rate FiO2 04/07/16 08:32 98.1 70 20 120/58 98 04/05/16 08:45 Nasal Cannula 04/05/16 06:28 2.0 Intake and Output 04/06/16 04/06/16 04/07/16 15:00 23:00 07:00 Intake Total 1000 ml 800 ml Output Total 0 ml 695 ml 650 ml Balance 0 ml 305 ml 150 ml Exam Free Text/Dictation Ecchymosis improving Dressing dry Incision clean, dry, and intact without redness or drainage 5/5 Quadriceps, Tibialis Anterior, EHL, Gastroc, Soleus, Peroneals Normal sensation Palpable DT/PT, CR <2 sec No distal edema Results Result Diagram: 04/07/16 0416 04/07/16 0416 SAVANNAH BRITO PA-C Apr 07, 2016 09:50
--- NOTE | 2016-04-07 11:46 | CONS ---
Date/Time of Note Date/Time of Note DATE: 04/07/16 TIME: 11:45 Assessment/Plan Assessment/Plan Additional Assessment/Plan 1. Doing well post op left hip replacement 2. Can dc if ok with ortho and pt Consultation Date/Type/Reason Admit Date/Time Apr 04, 2016 at 05:50 Detailed Summary Respiratory: No shortness of breath Cardiovascular: No chest pain Gastrointestinal: no complaints Musculoskeletal: bone/joint pain (mild left hip discomfort) Exam/Review of Systems Vital Signs Vitals Vital Signs Date Time Temp Pulse Resp B/P Pulse Ox O2 Delivery O2 Flow Rate FiO2 04/07/16 08:32 98.1 70 20 120/58 98 04/05/16 08:45 Nasal Cannula 04/05/16 06:28 2.0 Intake and Output 04/06/16 04/06/16 04/07/16 15:00 23:00 07:00 Intake Total 1000 ml 800 ml Output Total 0 ml 695 ml 650 ml Balance 0 ml 305 ml 150 ml Exam Neck: No jvd Respiratory: clear to auscultation Cardiovascular: regular rate and rhythm Gastrointestinal: soft Extremities: No edema (and no calf tend) Results Result Diagram: 04/07/16 0416 04/07/16 0416 Results 24 hrs Laboratory Tests Test 04/07/16 04:16 Anion Gap 9 Blood Urea Nitrogen 18 Calcium Level 8.3 L Carbon Dioxide Level 29 Chloride Level 103 Creatinine 0.80 Glucose Level 103 Hematocrit 30.5 L Hemoglobin 10.2 L Potassium Level 4.2 Sodium Level 137 Medications Medications Current Medications Miscellaneous Information 1 ea NOTE XX ; Start 04/04/16 at 07:00; Stop 04/08/16 at 06:59 Atorvastatin Calcium 10 mg 10 mg QHS PO Last administered on 04/06/16 20:55; Admin Dose 10 MG; Start 04/04/16 at 21:00 Lactated Ringer's (Lr) 1,000 ml @ 125 mls/hr Q8H IV Last administered on 05:25; Admin Dose 125 MLS/HR; Start 04/04/16 at 10:28 Celecoxib (Celebrex) 200 mg DAILY PO Last administered on 04/07/16 09:06; Admin Dose 200 MG; Start 04/05/16 at 09:00 Tramadol HCl (Ultram) 50 mg Q6 PO Last administered on 04/07/16 06:14; Admin Dose 50 MG; Start 04/04/16 at 12:00; Stop 04/07/16 at 11:59 Oxycodone HCl (Roxicodone) 10 mg Q4H PRN PO PAIN LEVEL 4-7; Start 04/04/16 at 10:30 Hydromorphone HCl (Dilaudid) 1 mg Q3H PRN IV PAIN LEVEL 8-10; Start 04/04/16 at 10:30 Ondansetron HCl (Zofran Inj) 4 mg Q6H PRN IV NAUSEA AND/OR VOMITING; Start at 10:30 Bisacodyl (Dulcolax Supp) 10 mg Q12H PRN [place] CONSTIPATION; Start 04/04/16 at 10: 30 Magnesium Hydroxide (Milk Of Mag) 30 ml BID PRN PO CONSTIPATION Last administered on 04/06/16 06:35; Admin Dose 30 ML; Start 04/04/16 at 10:30 Sodium Biphosphate/ Sodium Phosphate (Fleet Enema) 133 ml DAILY PRN [place] CONSTIPATION; Start 04/04/16 at 10:30 Docusate Sodium (Colace) 100 mg BID PO Last administered on 04/07/16 09:06; Admin Dose 100 MG; Start 04/04/16 at 21:00 Diphenhydramine HCl (Benadryl) 25 mg Q6H PRN PO PRURITUS; Start 04/04/16 at 10: 30 Aspirin (Ecotrin) 325 mg BID PO Last administered on 04/07/16 09:07; Admin Dose 325 MG; Start 04/05/16 at 09:00 Pregabalin (Lyrica) 50 mg BID PO Last administered on 04/07/16 09:11; Admin Dose 50 MG; Start 04/04/16 at 21:00 Pantoprazole (Protonix Tab) 40 mg BID@ PO Last administered on 04/07/16 06:13; Admin Dose 40 MG; Start 04/04/16 at 18:00 Acetaminophen/ Hydrocodone Bitart ([place] (5/325)) 1 tab Q4H PRN PO PAIN LEVEL 1 -5; Start 04/06/16 at 11:00 GLENROY XIONG MD Apr 07, 2016 11:46
--- NOTE | 2016-04-07 23:33 | DS ---
DATE OF ADMISSION: 04/04/2016 DATE OF DISCHARGE: 04/07/2016 CONDITION UPON DISCHARGE: Stable. ADMITTING DIAGNOSIS: Left hip advanced osteoarthritis. DISCHARGE DIAGNOSIS: Status post left anterior total hip arthroplasty. PROCEDURE PERFORMED: Left anterior total hip arthroplasty. HOSPITAL COURSE: This is an 89-year-old male who was seen in clinic initially complaining of left hip pain. X-rays were obtained and demonstrated advanced osteoarthritis of the left hip, and it was thought he would benefit from a left anterior total hip arthroplasty. On 04/04/2016, the patient was admitted and taken to the operating room, where he underwent a left anterior total hip arthroplasty. There were no intraoperative complications. The patient tolerated the procedure well. He was taken to the recovery room in stable condition. Pain was well controlled with oral pain medication. He was started on aspirin and SCDs for DVT prophylaxis. He remained hemodynamically stable and neurovascularly intact throughout his hospital stay. On postoperative day 1 , he began physical therapy and was deemed clinically stable for discharge on postoperative day #3. Prior to discharge, the patient's incision was inspected and was noted to be clean, dry and intact. Dressing changes were done prior to the patient going home. LABORATORY ANALYSIS: Upon discharge, hemoglobin 10.2, hematocrit 30.5. Chemistry panel was within normal limits. DISCHARGE MEDICATIONS: 1. [place] 5/325 mg. 2. Tramadol 50 mg. 3. Aspirin 325 mg. 4. Protonix 40 mg. Additionally, the patient to resume all of his normal home medication. DISCHARGE INSTRUCTIONS: The patient will be discharged home in stable condition. He is to resume a normal diet. Activity Includes weightbearing as tolerated on the left lower extremity. He is to begin physical therapy with home health. He will be discharged home with the medication noted above and is to resume all of his normal home medication. The patient is to call the office or return to the emergency room for any concerns including increased redness, swelling, drainage, fever or any concerns regarding the operation or site of incision. FOLLOWUP: The patient is to follow up in the office with Dr. Brown on 2016. Dictated By: SAVANNAH MCDONALD for [place] VILLA/KAYLAN Conf#: [id number] DID#: [id number] [facility]
== END 2016-04-07 12:50 | disposition home health service (06) | DRG 470 ==
LOC: REC 05:50 → MS1 12:45
PROVIDERS: ADMIT Orthopaedic Surgery; ATTEND Orthopaedic Surgery
PROC: 0SRC0J9 Replacement of Right Knee Joint with Synthetic Substitute, Cemented, Open Approach (ICD-10-PCS; principal; 2016-04-03)
DX: M17.11 Unilateral primary osteoarthritis, right knee (principal); E11.8 Type 2 diabetes mellitus with unspecified complications; Z68.42 Body mass index [BMI] 45.0-49.9, adult; I10 Essential (primary) hypertension; E03.9 Hypothyroidism, unspecified; I97.2 Postmastectomy lymphedema syndrome; Y83.8 Other surgical procedures as the cause of abnormal reaction of the patient, or of later complication, without mention of misadventure at the time of the procedure; Y92.89 Other specified places as the place of occurrence of the external cause; E66.01 Morbid (severe) obesity due to excess calories; Z85.3 Personal history of malignant neoplasm of breast
CPT/HCPCS: 72170; 73500; 73530; 80048; 81001; 81003; 85014; 85018; 86850; 86900; 86901; 86920; 87081; 87086; 88304; 88311; 97110; 97116; 97163; 97166; 97530; Z7610; C1776; C9290; J0131; J0171; J0690; J0697; J0735; J1100; J1170; J1644; J1885; J2175; J2250; J2274; J2405; J2765; J3370; J7120

== ENCOUNTER → 2016-04-15 | Outpatient (CLI) | payer MEDICARE, BC ==
[~2016-04-15] MED LIST changes: +ASPI325T32 PO; +HYDR-906 PO; +PANT40TA4 PO; +TRAM50TA2 PO; +VIT1TABL85 PO
--- NOTE | 2016-04-15 10:23 | RADRPT ---
PROCEDURE: XR pelvis/left hip. CLINICAL INDICATION: Hip pain TECHNIQUE: AP pelvis/lateral left hip view performed. COMPARISON: 04/04/2016 FINDINGS: There is a left total hip replacement. There is no evidence of loosening of the prosthesis. There is severe right hip osteoarthrosis. This is associated with joint space narrowing, subchondral sclerosis, subchondral cyst formation and osteophytosis. There is normal osseous mineralization. No fractures or osseous lesions are identified. The soft tissues are unremarkable. There is a stimu lator implant in the soft tissues overlying the right hip. IMPRESSION: Left total hip replacement. Severe right hip osteoarthrosis. RPTAT: HGDB .Gerber Montalvo MD, Date Time Electronically viewed and signed by .Gerber Montalvo MD, on 04/15/2016 10:23 .B/
--- NOTE | 2016-04-15 23:34 | HKNOTE ---
DATE OF SERVICE: 04/15/2016 INTERVAL HISTORY: The patient presents today for his first postoperative evaluation on his left hip. He is now 10 days status post left anterior total hip arthroplasty. He is doing well overall. He has been ambulating with a front-wheel walker. He has been taking tramadol predominantly for pain, as well as [place] intermittently. He denies any fevers or chills. He presents today for his first postoperative evaluation. PHYSICAL EXAMINATION: On exam today, he is alert and oriented x4, in no acute distress. He is ambulating with a front-wheel walker. Exam of the incision demonstrates it to be clean, dry, and intact. Prineo was in place. There is no erythema or warmth. There is some mild soft tissue swelling. I am able to actively internally and externally rotate hip. The compartments are otherwise soft. Homans sign is negative. He is neurovascularly intact distally. IMAGING: X-rays of the left hip were obtained today and reviewed by me. They reveal good anatomic fixation of the prosthesis. There is no fracture or dislocation identified. ASSESSMENT: Ten days status post left anterior total hip arthroplasty. DISCUSSION: The Prineo was removed today and Steri-Strips were applied. He is to continue ambulating with a front-wheeled walker and transition to a cane. He is to continue with home health. The patient understands that he is supposed to take aspirin twice daily for a total of 6 weeks for DVT prophylaxis. We will see him back in 4 weeks for reevaluation. He is to call the office if he has any other additional concerns in the meantime. Dictated By: SAVANNAH VILLA/KAYLAN Conf#: [id number] DID#: [id number] MTDD
== END | disposition home or self-care (01) ==
LOC: HKI 09:49
PROVIDERS: ATTEND Orthopaedic Surgery
DX: Z47.1 Aftercare following joint replacement surgery (principal); Z96.642 Presence of left artificial hip joint
CPT/HCPCS: 73502

== ENCOUNTER → 2016-05-13 | Outpatient (CLI) | payer MEDICARE, BC ==
--- NOTE | 2016-05-13 16:40 | RADRPT ---
PROCEDURE: XR pelvis/left hip. CLINICAL INDICATION: Hip pain TECHNIQUE: AP pelvis/lateral left hip view available for review. COMPARISON: 04/15/2016 FINDINGS: There is a left total hip replacement. There is no evidence of loosening of the prosthesis. There is no evidence of hardware failure. There is severe right hip osteoarthrosis. This is associated with joint space narrowing, subchondral sclerosis, subchondral cyst formation and osteophytosis. There is normal osseous mineralization. No fractures or osseous lesions are identified. There is lower lumbar degenerative disk disease. The soft tissues are unremarkable. There is a stimulator implant in the soft tissues overlying the right hip. IMPRESSION: Left total hip replacement. Severe right hip osteoarthrosis. RPTAT: HGDB .Gerber Montalvo MD, Date Time Electronically viewed and signed by .Gerber Montalvo MD, on 05/13/2016 16:40 .B/
== END | disposition home or self-care (01) ==
LOC: HKI 13:36
PROVIDERS: ATTEND Orthopaedic Surgery
DX: Z47.1 Aftercare following joint replacement surgery (principal); M16.12 Unilateral primary osteoarthritis, left hip; M16.11 Unilateral primary osteoarthritis, right hip; M25.551 Pain in right hip; Z96.642 Presence of left artificial hip joint
CPT/HCPCS: 73502; G0463

== ENCOUNTER → 2016-06-26 | Outpatient (CLI) | payer MEDICARE, BC ==
--- NOTE | 2016-06-26 17:29 | RADRPT ---
PROCEDURE: XR Pelvis and Hips. CLINICAL INDICATION: Pelvic pain. Bilateral hip pain. TECHNIQUE: Five views. Frontal pelvis. Frontal and lateral right hip. Frontal and lateral left hip. COMPARISON: No prior studies are available for comparison. FINDINGS: There are severe degenerative changes of the right hip with joint space narrowing, osteophytes, suba rticular sclerosis, and mild deformity. There is a left hip total arthroplasty which appears satisf actory with no fracture, dislocation, or loosening. There is no lytic or blastic lesion. There are degenerative changes of the lower lumbar spine. IMPRESSION: 1. Severe degenerative changes of the right hip. 2. Total left hip arthroplasty. 3. A degenerative changes of the lower lumbar spine. RPTAT: QQ .Josesito Ding MD, MD Date Time Electronically viewed and signed by .Josesito Ding MD, on 06/26/2016 17:29 .R/
== END | disposition home or self-care (01) ==
LOC: HKI 10:47
PROVIDERS: ATTEND Orthopaedic Surgery
DX: M25.561 Pain in right knee (principal); M25.562 Pain in left knee; M17.0 Bilateral primary osteoarthritis of knee; M16.11 Unilateral primary osteoarthritis, right hip; M25.551 Pain in right hip; Z96.642 Presence of left artificial hip joint
CPT/HCPCS: 20610; 73523; J7327

== ENCOUNTER → 2016-07-24 | Outpatient (CLI) | payer MEDICARE, BC ==
[~2016-07-24] MED LIST changes: +HYDR-3498 PO
== END | disposition home or self-care (01) ==
LOC: HKI 10:48
PROVIDERS: ATTEND Orthopaedic Surgery
DX: M16.11 Unilateral primary osteoarthritis, right hip (principal); Z47.1 Aftercare following joint replacement surgery; Z96.642 Presence of left artificial hip joint
CPT/HCPCS: G0463

== ENCOUNTER 2016-07-30 05:34 | Inpatient (IN) | payer MEDICARE, BC ==
[~2016-07-30] VITALS: Ht 182.9 cm; Wt 82.7 kg
[2016-07-30] VITALS (25 sets, daily range): BP systolic 107–150; BP diastolic 53–74; PULSE 52–68; RESP 14–23; Ht 182.9 cm; Wt 82.7 kg
[~2016-07-30 05:34] MED LIST changes: -HYDR-3498 PO; +oxyCODONE (CR) 10 MG TAB [oxyCONTIN] X1 DOSE PO SCH
[2016-07-30] MEDS: traMADOL 50 MG TAB X 1 DOSE PO SCH ×2 (06:32→12:25)
[2016-07-30] MEDS ORDERED: BACITRACIN 50000 UNITS INJ ONE (06:38)
[2016-07-30] MEDS ORDERED: SODIUM CL BACTERIOSTATIC 30 ML INJ ONE (06:59)
[2016-07-30] MEDS ORDERED: VANCOMYCIN 1 GM INJ ONE (06:59)
[2016-07-30] MEDS ORDERED: POLYMYXIN B 500000 UNIT INJ ONE (06:59)
[2016-07-30] MEDS ORDERED: TRANEXAMIC ACID 830 MG in SOD CHLORIDE 0.9% 100 ML IVPB SCH (07:00)
[2016-07-30] MEDS ORDERED: CEFAZOLIN 2GM/50 ML (PMX) 50 ML X1 BEFORE INCISION IVPB SCH (07:00)
[2016-07-30] MEDS ORDERED: TRANEXAMIC ACID IV SCH (07:00)
[2016-07-30] MEDS ORDERED: PAIN COCKTAIL-CEFUROXIME IRR SCH ×7 (07:00)
[2016-07-30] MEDS ORDERED: SOD CHLORIDE 0.9% IV SCH (07:00)
[2016-07-30] MEDS ORDERED: CELECOXIB 400 MG PO X1 DOSE PO SCH (07:00)
[2016-07-30] MEDS ORDERED: PREGABALIN 300 MG PO X1 PO SCH (07:00)
[2016-07-30] MEDS ORDERED: ETOMIDATE 20 MG INJ ONE (07:00)
[2016-07-30] MEDS ORDERED: LACTATED RINGER'S 1,000 ML IV SCH (07:00)
[2016-07-30] MEDS ORDERED: ONDANSETRON 4 MG INJ IV SCH (07:00)
[2016-07-30] MEDS ORDERED: BUPIVACAINE LIPOSOME/PF 266 MG/20 ML VIAL INFIL SCH (07:00)
[2016-07-30] MEDS ORDERED: NEOSTIGMINE 3 MG/3 ML SYRINGE ONE (07:11)
[2016-07-30] MEDS ORDERED: ROCURONIUM 50 MG INJ ONE (07:11)
[2016-07-30] MEDS ORDERED: PROPOFOL 20 ML ONE (07:11)
[2016-07-30] MEDS ORDERED: GLYCOPYRROLATE 0.4 MG INJ ONE (07:11)
[2016-07-30] MEDS ORDERED: CEFAZOLIN 1 GM INJ ONE (07:11)
--- NOTE | 2016-07-30 07:12 | HPN ---
Date/Time of Note Date/Time of Note DATE: 07/30/16 TIME: 07:12 Interval H&P Admission Note Pt. seen H&P reviewed: No system changes No change from H&P on 07/16/16 by GE[place] Lira MD Jul 30, 2016 07:12
[2016-07-30] MEDS ORDERED: ONDANSETRON 4 MG INJ ONE (07:13)
[2016-07-30] MEDS ORDERED: MIDAZOLAM 1 MG/ML 2 ML INJ ONE (07:13)
[2016-07-30] MEDS ORDERED: DEXAMETHASONE 4 MG/ML 1 ML INJ ONE (07:13)
[2016-07-30] MEDS ORDERED: FENTAnyl 50 MCG/ML VIAL ONE (07:13)
--- NOTE | 2016-07-30 07:18 | PREOPHP ---
DATE: SUBJECTIVE: The patient is an 89-year-old male scheduled for a right total hip replacemen t on 07/30/2016. The patient has been complaining of severe pain and limitation of motion in his ri ght hip. He has had a previous successful left hip replacement. The patient has had chronic low ba ck pain and had been on a pain stimulator, but the stimulator was removed on 05/31/2016. REVIEW OF SYSTEMS: GENERAL: The patient has been in reasonably good health other than a lipid meta bolism disorder, on Lipitor 20 mg a day. He has been taking a baby aspirin 1-1/4 grains daily, but stopped this 1 week ago. He has had a previous suprapubic prostatectomy for BPH. At present time, he has some frequency of urination, but no hematuria or occasional leakage. REVIEW OF SYMPTOMS: Denies fevers, chills, weight loss or weight gain. EARS: Slight hearing loss, but no hearing aids. NOSE: Denies epistaxis, rhinitis or sinusitis. EYES: The patient wears glasses for reading and distance. He has had previous bilateral cataract s urgery with lens implantation. GLANDULAR: See present illness. RESPIRATORY: Denies cough, wheezing or shortness of breath. CARDIOVASCULAR: Denies chest pain, angina, myocardial infarction, congenital or rheumatic heart dis ease. GASTROINTESTINAL: Had undergone a previous colonoscopy in 2011 with a dysplastic colon polyp noted. Average is 3 BMs a day, no blood or mucous. NEUROLOGIC: Denies severe recurrent headaches, seizures, unconsciousness or paralysis. MUSCULOSKELETAL: History of trigger finger with previous surgery for the above, third finger right hand. The patient has degenerative arthritis of both knees and has had previous Synvisc injections, had lumbar disc surgery back in the 50s. HEMATOLOGIC: Some bruising on the forearms, otherwise no hematologic disorders. 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 Pascual. PAST MEDICAL HISTORY: As noted with a prostatectomy as noted and pain stimulator insertion and martha elijah. SOCIAL HISTORY: Cigarettes 0, alcohol 1 glass of red wine a day, coffee 2 to 3 cups per day. Diet: Two meals a day, no major restrictions. FAMILY HISTORY: Mother at the age of 89, unknown cause. Father age 89, cardiovascular di sease. He has a brother who is 81, living and well. Three children, a son and 2 daughters. MEDICATIONS AT PRESENT: Consist of: 1. Lipitor 10 mg per day. 2. Aspirin which has been discontinued. 3. Ford 1 to 2 tablets a day. 4. Rare Advil and aspirin which have been stopped 2 weeks ago. ALLERGIES: NONE KNOWN. PHYSICAL EXAMINATION: GENERAL: Reveals a well-developed male, looking younger than his stated age. VITAL SIGNS: Blood pressure 130/70, pulse 66 per minute and regular, temperature 97.6, weight 183 p ounds, height 72 inches. Eyes: Pupils equal and consensual to light and accommodation. Fundi nega tive. Ears: Canals and tympanic membranes clear. Sight decrease in acuity of hearing. Mouth: No lesions. Tonsils enucleated. NECK: Without venous distention, adenopathy or palpable thyroid. LUNGS: Clear to auscultation. HEART: No murmurs thrills or rubs. ABDOMEN: Suprapubic scars noted without liver, kidney or spleen. MUSCULOSKELETAL: There is some atrophy of the left thigh and calf. Pain on abduction/adduction int ernal and external rotation in the right hip. A 2.5 x 6.5 cm scar, left lateral hip. There is a li deven in the left trapezius. LYMPHATIC: No adenopathy. NEUROLOGIC: Lapse in Achilles reflex. PSYCHIATRIC: Negative. LABORATORY DATA: The blood work reveals a glucose of 82. The BUN is 19, creatinine 0.97. Creatini ne clearance 69 mL/minute. Sodium 141 mEq, potassium 4.6 mEq, chloride 107 mEq, CO2 is 26 mEq, calc ium 9.4. The partial thromboplastin time is 24 seconds, normal is up to 34 seconds. Protime is 10. 6 seconds, 100% activity. Hemoglobin 12.2, hematocrit 38.6, white count 6600. The platelet count i s 192,000. There is a normal differential count, urinalysis is negative. EKG reveals a sinus rhythm at a rate of 61 a minute. There is sinus arrhythmia and a left axis javi ation. Other than that, no changes from 06/12/2015. IMAGING: The chest x-ray done on 07/16/2016 reveals a normal aorta, slightly calcified, heart size is within normal limits. Scarring and some atelectasis in the left base. Lung rowell are otherwise clear. IMPRESSION: 1. Degenerative arthritis of the right hip. 2. Elevated cholesterol and LDL on Lipitor. PLAN: I see no contraindications to the performing of elective right hip arthroplasty under general anesthesia. Dr. Francesco Sandoval, JOSE dictating Pre-Operative History and Physical for Dr. Georgia Russell MD. Dictated By: GEORGIA RUSSELL MD EZ/NTS Conf#: [id number] DID#: [id number]
[2016-07-30] MEDS ORDERED: DIPHENHYDRAMINE 50 MG INJ IV PRN (09:00)
[2016-07-30] MEDS ORDERED: hydrALAzine 20 MG INJ IV PRN (09:00)
[2016-07-30] MEDS ORDERED: OXYCODONE/ACETAMINOPHEN (5/325) TAB PO PRN ×2 (09:00)
[2016-07-30] MEDS ORDERED: HYDROmorphONE (0.2 MG/ML) 10ML SYG IV PRN ×3 (09:00)
[2016-07-30] MEDS ORDERED: TRIMETHOBENZAMIDE 100 MG/ML VIAL IM PRN (09:00)
[2016-07-30] MEDS ORDERED: LABETALOL HCL 20MG INJ IV PRN (09:00)
[2016-07-30] MEDS ORDERED: FENTAnyl 50 MCG/ML VIAL IV PRN ×3 (09:00)
[2016-07-30] MEDS ORDERED: EPHEDrine SULFATE 50 MG/5 ML SYG IV PRN (09:00)
[2016-07-30] MEDS ORDERED: MEPERIDINE 25 MG INJ IV PRN (09:00)
[2016-07-30] MEDS ORDERED: MIDAZOLAM 1 MG/ML 2 ML INJ IV PRN (09:00)
[2016-07-30] MEDS ORDERED: ONDANSETRON 4 MG INJ IV PRN ×2 (09:00→10:00)
[2016-07-30] MEDS ORDERED: MINERAL OIL LIGHT 10 ML VIAL ONE (09:03)
[2016-07-30] MEDS ORDERED: HYDROCODONE/APAP (5/325) TAB PO PRN (10:00)
[2016-07-30] MEDS ORDERED: NACL 0.9% 3 ML SYG IV SCH (10:00)
[2016-07-30] MEDS ORDERED: NA PHOSPHATE/BIPHOS 133 ML ENEMA PR PRN (10:00)
[2016-07-30] MEDS ORDERED: BISACODYL 10 MG SUPP PR PRN (10:00)
[2016-07-30] MEDS ORDERED: DIPHENHYDRAMINE 25 MG CAP PO PRN (10:00)
[2016-07-30] MEDS ORDERED: ASPIRIN (EC) 325 MG TAB PO ONE (10:00)
[2016-07-30] MEDS ORDERED: HYDROmorphONE 1 MG/ML SYG IV PRN (10:00)
--- NOTE | 2016-07-30 10:11 | PN ---
Date/Time of Note Date/Time of Note DATE: 07/30/16 TIME: 10:10 Assessment/Plan Lines/Catheters IV Catheter Type (from Nrsg): Peripheral IV Assessment/Plan Assessment/Plan Stable in PACU, s/p right anterior EUSEBIO -continue Ancef until drains removed -pain meds as needed -ASA/SCDs for DVT prophylaxis -OOB with PT -check AM labs -monitor drain -d/c rojas in AM XR of the right hip is pending at this time Subjective 24 Hr Interval Summary Stable in PACU. Drowsy from anesthesia. Moving all extremities. Exam/Review of Systems Vital Signs Vitals Vital Signs Date Time Temp Pulse Resp B/P Pulse Ox O2 Delivery O2 Flow Rate FiO2 07/30/16 06:58 98.3 57 16 135/66 96 Room Air Exam Free Text/Dictation Hemovac: minimal Dressing dry Incision clean, dry, and intact without redness or drainage 5/5 Quadriceps, Tibialis Anterior, EHL, Gastroc, Soleus, Peroneals Normal sensation Palpable DT/PT, CR <2 sec No distal edema SAVANNAH BRITO PA-C Jul 30, 2016 10:11
--- NOTE | 2016-07-30 10:14 | OPR ---
Date/Time of Note Date/Time of Note DATE: 07/30/16 TIME: 10:13 Operative Report Free Text/Dictation Dictation # [id number] Procedure Date: Jul 30, 2016 Preoperative Diagnosis Right Hip OA Postoperative Diagnosis Same Operation Performed Right Anterior EUSEBIO Surgeon: GEORGIA RUSSELL MD research lab assistant: SAVANNAH BRITO PA-C Anesthesia: general, spinal Anesthesiologist: Jean Claude Ryder M.D. Estimated Blood Loss: 250 - 300 ml's Specimens Femoral Head Tubes/Drains Hemovac x 1 Complications: None Pt Condition Post Procedure: stable Disposition: PACU GEORGIA RUSSELL MD Jul 30, 2016 10:14
[2016-07-30] MEDS: CEFAZOLIN 2 GM/50 ML (PMX) 50 ML IVPB SCH ×2 (10:36→20:30)
[2016-07-30 10:43] LABS: HEMATOCRIT 34.8 % (42.0-52.0)
--- NOTE | 2016-07-30 10:48 | RADRPT ---
PROCEDURE: Pelvis x-ray CLINICAL INDICATION: Status post right hip arthroplasty. TECHNIQUE: Single AP view of the pelvis performed. COMPARISON: AP pelvis 07/29/2016. FINDINGS: The acetabular and femoral components of the right hip arthroplasty are anatomically aligned. The s ubcutaneous emphysema and a drainage tube in the right hip for recent surgery. Alexander catheter is no garrison in place in the midline of the pelvis. The left hip arthroplasty is unchanged. There is disk sp sher narrowing at the presumed levels of L4-5 and L5-S1. IMPRESSION: 1. Subcutaneous emphysema with a drainage catheter noted in the right hip following a right hip art hroplasty. The components appear anatomically aligned. 2. Status post total left hip arthroplasty which is unchanged compared to 07/29/2016. 3. Osteoarthritic degenerative changes of the lower lumbar spine and lumbosacral junction. RPTAT:AAJJ Physician Fantasma Date Time Electronically viewed and signed by Sandro Rascon Physician on 07/30/2016 10:48 SULEMAN/
--- NOTE | 2016-07-30 10:50 | RADRPT ---
PROCEDURE: XR Hip. CLINICAL INDICATION: Post op in PACU TECHNIQUE: AP and frog lateral views of the right hip were performed. COMPARISON: None. FINDINGS: There are postsurgical changes with skin collette over the lateral aspect of the right hip and a drai nage tube projecting adjacent to the right femur with subcutaneous emphysema. The right hip arthrop lasty components are anatomically aligned. IMPRESSION: 1. Status post total right hip arthroplasty with postsurgical changes. 2. A Alexander catheter is identified projecting in the midline of the lower pelvis. RPTAT:AAJJ Physician Fantasma Date Time Electronically viewed and signed by Physician Fantasma on 07/30/2016 10:49 JM/
[2016-07-30 11:08] LABS: CALCIUM 8.8 mg/dl (8.4-10.2); CREATININE 0.81 mg/dl (0.61-1.24); POTASSIUM 3.9 mmol/L (3.5-5.1)
--- NOTE | 2016-07-30 11:32 | OPR ---
DATE OF OPERATION: 07/30/2016 PREOPERATIVE DIAGNOSIS: Right hip osteoarthritis. POSTOPERATIVE DIAGNOSIS: Right hip osteoarthritis. OPERATION PERFORMED: Right anterior total hip arthroplasty. SURGEON: Georgia Brown MD DEVULCANIZER LOADER: HARRY Mendenhall COMPONENTS USED: DePuy size 54 mm Gription Primrose cup, 54/36 neutral AltrX polyethylene liner, si ze 6 high offset Actis stem, 36+1.5 ceramic head. ANESTHESIA: Spinal plus general endotracheal intubation plus periarticular injection. ANESTHESIOLOGIST: Dr. Ryder. ESTIMATED BLOOD LOSS: 300 mL. INTRAVENOUS FLUIDS: 3 liters crystalloid. SPECIMENS: Femoral head. DRAINS: Hemovac x1. COMPLICATIONS: None. DISPOSITION: Patient tolerated the procedure well and was taken to the recovery room in stable [facility] ition. INDICATIONS: The patient is an 89-year-old gentleman who has had progressive worsening pain in the right hip with radiographic evidence of severe osteoarthritis. He has failed nonsurgical means of t reatment to control his pain including activity modifications, pain medications and ambulatory todd t devices. Despite these measures, he has had worsening pain and I felt he would benefit from a tot al hip arthroplasty through an anterior approach. The risks, benefits, and alternatives of the procedure were explained in detail to the patient. I e xplained the risks of the surgery to include, but not be limited to: bleeding and possible need for blood transfusion; infection; pain; stiffness; neurovascular injury with possible numbness, weakness , and/or paralysis anywhere from the hip down to the toes; fracture; instability; dislocation; leg l ength inequality; wear and/or loosening of the prosthesis and possible need for future revision; blo od clots; pulmonary embolism; and anesthetic complications such as heart attack, stroke, GI bleed, p neumonia, and/or . Ample time was allowed for the patient to ask questions, all of which were addressed and answered. The patient understood the risks involved and wished to proceed. Informed c onsent was signed prior to the procedure. PROCEDURE: The patient's right hip was initialed with a marking pen in the preoperative area to iden tify the correct operative site. The patient was brought to the operating room and [facility] to the [facility] where a spinal anesthetic was administered. The patient was then anesthetized and intubated. A Alexander catheter was placed. Both feet were placed into well-padd ed boots which were then placed into the leg holders of the traction booms. A timeout was performed to confirm that the right side was the correct operative site. The patient was given 2 g of intrav enous Ancef within one hour prior to the procedure. The operative hip was prepped and draped in the usual sterile fashion. A 10 cm oblique incision was made over the anterior aspect of the hip and carried down through subcu taneous tissue and fat with sharp dissection. The tensor fascia kenneth was incised along the length o f the wound. The tensor fascia muscle was retracted laterally and the sartorius medially. The anter ior circumflex vessels were identified and tied off with 2-0 silk suture and coagulated with the Eventtus maddy Link security coordinator. The rectus femoris was elevated off the anterior capsule and an anterior capsu lectomy performed. A femoral neck osteotomy was made and the head removed from the acetabulum. The acetabulum was denuded of cartilage circumferentially, as was the femoral head. Retractors were pl aced around the acetabulum. The remnants of the labrum and ligamentum teres were excised. I reamed the acetabulum to the medial wall and then went into an anatomic position and increased the reamer size in 2 mm increments until I got a good bite and was down to bleeding subchondral bone. The Primrose cup was opened and impacted into the acetabulum and sat flush circumferentially, gettin g a good bite. C-arm imaging showed it had about 40 to 45 degrees of abduction and 20 degrees of ant eversion. The real liner was opened and impacted into the acetabulum and sat flush circumferentiall y. Attention was turned towards the femur. The operative leg was carefully lowered to the floor with the leg adducted. The foot was then exter angela rotated to approximately 110 degrees. A posteromedial release was performed to optimize expos ure. The femoral hook was placed underneath the proximal femur and the hydraulic lift was then used to elevate the femur up out of the wound. The christiano cutter osteotome was used to remove the remai ximena overhanging greater trochanter. The femur was then broached, going up in one size increments u ntil it sat flush with the neck cut and a stable fit was achieved. The trial neck and head were ass embled and reduced into the acetabulum. Fluoroscopic imaging showed the components to be in good pos ition and the leg lengths and offsets to be equal. At this point, the trial was dislocated and the trial broach removed. The canal was irrigated and d ried. The real stem was opened and impacted into the femur. The trunnion was irrigated and dried, a nd the real femoral head was impacted onto the trunnion, and reduced into the acetabulum. The soft tissues were infiltrated with a mixture of 150 mg of 0.5% Bupivacaine, 8 mg of Duramorph, 3 00 mcg of epinephrine, 30 mg of Toradol, 100 mcg of clonidine, 750 mg of cefuroxime and 86 mL of nor mal saline, followed by an injection of 266 mg of liposomal Bupivacaine. At this point the hip was irrigated with a mixture of betadine/saline and then antibiotic saline with pulsatile lavage. A Hem ovac drain was placed in the deep portion of the wound and brought out the anterolateral thigh. Ther e was good hemostasis. The tensor fascia kenneth was repaired with a running #1 Vicryl. The deep fat layer was irrigated and closed with 2-0 Stratafix and the subcutaneous layer closed with 3-0 Vicryl and the skin was closed with collette and then sealed with Dermabond. The drain was secured with 3-0 nylon. The sponge and needle counts were correct at the end of the case. The wound was covered with an occ lusive dressing. The patient was awakened, extubated, and taken to the recovery room in stable cond ition. Dictated By: GEORGIA ANGULO/KAYLAN Conf#: [id number] DID#: [id number]
[2016-07-30] MEDS: traMADol 50 MG TAB PO SCH ×3 (12:00→23:27)
[2016-07-30] MEDS ORDERED: PROPOFOL 100 ML ONE (12:26)
[2016-07-30] MEDS ORDERED: TRANEXAMIC ACID 830 MG in SOD CHLORIDE 0.9% 100 ML IVPB ONE ×2 (13:00→16:00)
--- NOTE | 2016-07-30 13:09 | RADRPT ---
PROCEDURE: XR Hip. CLINICAL INDICATION: Hip replacement. TECHNIQUE: Right hip x-rays, 12 intraoperative fluoroscopic views. Fluoroscopy time: 0.4 minutes . COMPARISON: 06/26/2016. FINDINGS: Preliminary images demonstrate severe osteoarthritis of the right hip and left hip arthroplasty. Fi nal images demonstrate right hip arthroplasty hardware in place. The hip joints are intact. IMPRESSION: Surgical changes compatible with right hip arthroplasty. RPTAT: HLST .Lisa Oneil MD, MD Date Time Electronically viewed and signed by .Lisa Oneil MD, on 07/30/2016 13:08 .T/
--- NOTE | 2016-07-30 13:30 | CONS ---
DATE OF ADMISSION: 07/30/2016 DATE OF CONSULTATION: 07/30/2016 TYPE OF CONSULTATION: Postoperative Medical Dear. Dr. Hernandez, Thank you very much for allowing me to evaluate this 89-year-old male who just underwent right hip a rthroplasty. HISTORICAL EVENTS: As you well know, I did evaluate him postoperatively in March of this year wh en he underwent a left total hip replacement. Because of increasing pain involving the contralatera l hip, he elected to proceed with your surgical intervention. Postoperatively, he is comfortable, d enying cough, wheezing, shortness of breath, nausea, vomiting, abdominal or chest pain. PAST MEDICAL HISTORY: Quite unremarkable except for hyperlipidemia. No history of diabetes, martínez ry artery disease, hypertension, has known degenerative arthritis, spinal stenosis and has a lumbar back stimulator. MEDICATIONS: Lipitor 10 mg per day. FAMILY HISTORY: To be reviewed later. ALLERGIES: NONE. PHYSICAL EXAMINATION: GENERAL: [place] male in no acute distress. VITAL SIGNS: Blood pressure 112/80, pulse 70, respirations 20, he was afebrile. EYES: Extraocular muscles were full. NOSE, MOUTH, AND THROAT: Normal. NECK: Supple. There was no jugular venous distention, thyroid enlargement or adenopathy. Carotids 2+, no bruits. LUNGS: Clear. HEART: Rhythm regular. Reduced heart tones. No murmur. No 3rd or 4th sound. ABDOMEN: Nontender. Liver and spleen were not palpable. No masses or tenderness were noted. EXTREMITIES: No edema. Calves nontender. NEUROLOGIC: No lateralizing motor weakness. IMPRESSION: 1. Stable postop right hip replacement. 2. History of hyperlipidemia. We will continue statin therapy. 3. We will evaluate daily for signs and symptoms of thromboembolic disease despite appropriate deep venous thrombosis prophylaxis. Dictated By: GLENROY XIONG MD MR/NTS Conf#: [id number] DID#: [id number]
[2016-07-30] MEDS: LACTATED RINGER'S 1,000 ML IV SCH ×2 (13:45→17:38)
[2016-07-30] MEDS ORDERED: EXPAREL NOTE (BUPIVICAINE LIPOSOMAL) XX SCH (14:00)
[2016-07-30] MEDS: PANTOPRAZOLE (EC) 40 MG TAB PO SCH (18:49)
[2016-07-30] MEDS: DOCUSATE SODIUM 100 MG CAP PO SCH (20:30)
[2016-07-30] MEDS: ATORVASTATIN 10 MG TAB PO SCH (20:30)
[2016-07-30] MEDS: oxyCODONE 5 MG TAB PO PRN (20:58)
[2016-07-30] MEDS ORDERED: ATORVASTATIN 10 MG TAB PO SCH (21:00)
[2016-07-31] MEDS: LACTATED RINGER'S 1,000 ML IV SCH ×3 (02:32→17:11)
[2016-07-31] MEDS: traMADol 50 MG TAB PO SCH ×4 (04:36→22:59)
[2016-07-31] MEDS: oxyCODONE 5 MG TAB PO PRN ×2 (04:37→14:14)
[2016-07-31 05:06] LABS: HEMATOCRIT 34.1 % (42.0-52.0); HEMOGLOBIN 10.9 g/dl (14.0-18.0)
[2016-07-31] MEDS: PANTOPRAZOLE (EC) 40 MG TAB PO SCH ×2 (05:15→17:59)
[2016-07-31] MEDS: CEFAZOLIN 2 GM/50 ML (PMX) 50 ML IVPB SCH (05:15)
[2016-07-31 05:48] VITALS: BP 132/66; PULSE 58; RESP 18
[2016-07-31 06:19] LABS: CALCIUM 8.9 mg/dl (8.4-10.2); CREATININE 0.85 mg/dl (0.61-1.24); POTASSIUM 4.3 mmol/L (3.5-5.1)
[2016-07-31 07:00] VITALS: BP 142/65; RESP 20
[2016-07-31 07:32] LABS: ADD UMIC NO; UR BILIRUBIN (Dip) NEGATIVE (NEGATIVE); UR BLOOD (Dip) NEGATIVE (NEGATIVE); UR CLARITY CLEAR (CLEAR); UR COLOR LT. YELLOW (YELLOW); UR GLUCOSE (Dip) NEGATIVE (NEGATIVE); UR KETONES (Dip) NEGATIVE (NEGATIVE); UR LEUKOCYTE ESTERASE (Dip) NEGATIVE (NEGATIVE); UR NITRITE (Dip) NEGATIVE (NEGATIVE); UR TOTAL PROTEIN (Dip) NEGATIVE (NEGATIVE); UR UROBILINOGEN (Dip) 0.2 E.U./dL (0.1-1.0)
--- NOTE | 2016-07-31 08:26 | CONS ---
Date/Time of Note Date/Time of Note DATE: 07/31/16 TIME: 08:25 Assessment/Plan Assessment/Plan Additional Assessment/Plan 1. Doing welll post op right hip replacement 2. Labs rev 3. Hyperlipidemia, statin was continued Consultation Date/Type/Reason Admit Date/Time Jul 30, 2016 at 05:34 Initial Consult Date Detailed Summary Respiratory: No shortness of breath Cardiovascular: No chest pain Gastrointestinal: no complaints Genitourinary: no complaints Musculoskeletal: bone/joint pain (mild right hip and thight pain) Exam/Review of Systems Vital Signs Vitals Vital Signs Date Time Temp Pulse Resp B/P Pulse Ox O2 Delivery O2 Flow Rate FiO2 07/31/16 05:48 97.6 58 18 132/66 97 07/30/16 15:15 Room Air 07/30/16 10:13 2.0 Intake and Output 07/30/16 07/30/16 07/31/16 15:00 23:00 07:00 Intake Total 3108.3 ml 988.3 ml 1450 ml Output Total 1020 ml 1000 ml 2060 ml Balance 2088.3 ml -11.7 ml -610 ml Exam Neck: No jvd Respiratory: clear to auscultation Cardiovascular: regular rate and rhythm Gastrointestinal: soft Extremities: No edema (and no calf tend) Results Result Diagram: 07/31/16 0445 07/31/16 0445 Results 24 hrs Laboratory Tests Test 07/30/16 10:30 07/31/16 04:45 07/31/16 05:00 07/31/16 05:58 Hemoglobin 11.0 L 10.9 L Hematocrit 34.8 L 34.1 L Sodium Level 142 140 Potassium Level 3.9 4.3 Chloride Level 111 H 108 Carbon Dioxide Level 25 26 Anion Gap 10 10 Blood Urea Nitrogen 19 17 Creatinine 0.81 0.85 Glucose Level 117 115 Calcium Level 8.8 8.9 Urine Color LT. YELLOW Urine Clarity CLEAR Urine pH 6.5 Urine Specific [place] 1.010 Urine Ketones NEGATIVE Urine Nitrite NEGATIVE Urine Bilirubin NEGATIVE Urine Urobilinogen 0.2 E.U./dL Urine Leukocyte Esterase NEGATIVE Urine Hemoglobin NEGATIVE Urine Glucose NEGATIVE Urine Total Protein NEGATIVE Lab Scanned Report REFERENCE LAB Medications Medications Current Medications Miscellaneous Information 1 ea NOTE XX ; Start 07/30/16 at 14:00; Stop 08/03/16 at 13:59 Atorvastatin Calcium 10 mg 10 mg QHS PO Last administered on 07/30/16 20:30; Admin Dose 10 MG; Start 07/30/16 at 21:00 Lactated Ringer's (Lr) 1,000 ml @ 125 mls/hr Q8H IV Last administered on 02:32; Admin Dose 125 MLS/HR; Start 07/30/16 at 09:59 Tramadol HCl (Ultram) 50 mg Q6 PO Last administered on 07/31/16 04:36; Admin Dose 50 MG; Start 07/30/16 at 12:00; Stop 08/02/16 at 11:59 Acetaminophen/ Hydrocodone Bitart ([place] (5/325)) 1 tab Q4H PRN PO PAIN LEVEL 1 -3; Start 07/30/16 at 10:00 Acetaminophen/ Hydrocodone Bitart ([place] (5/325)) 2 tab Q4H PRN PO PAIN LEVEL 4 -7; Start 07/30/16 at 10:00 Oxycodone HCl (Roxicodone) 10 mg Q4H PRN PO PAIN LEVEL 4-7 Last administered on 07/31/16 04:37; Admin Dose 10 MG; Start 07/30/16 at 10:00 Hydromorphone HCl (Dilaudid) 1 mg Q3H PRN IV PAIN LEVEL 8-10; Start 07/30/16 at 10:00 Ondansetron HCl (Zofran Inj) 4 mg Q6H PRN IV NAUSEA AND/OR VOMITING; Start at 10:00 Bisacodyl (Dulcolax Supp) 10 mg Q12H PRN NC CONSTIPATION; Start 07/30/16 at 10: 00 Magnesium Hydroxide (Milk Of Mag) 30 ml BID PRN PO CONSTIPATION; Start at 10:00 Sodium Biphosphate/ Sodium Phosphate (Fleet Enema) 133 ml DAILY PRN NC CONSTIPATION; Start 07/30/16 at 10:00 Docusate Sodium (Colace) 100 mg BID PO Last administered on 07/30/16 20:30; Admin Dose 100 MG; Start 07/30/16 at 21:00 Diphenhydramine HCl (Benadryl) 25 mg Q6H PRN PO PRURITUS; Start 07/30/16 at 10: 00 Aspirin (Ecotrin) 325 mg BID PO ; Start 07/31/16 at 09:00 Pantoprazole (Protonix Tab) 40 mg BID@06,18 PO Last administered on 07/31/16t 05:15; Admin Dose 40 MG; Start 07/30/16 at 18:00 GLENROY XIONG MD Jul 31, 2016 08:26
[2016-07-31] MEDS: DOCUSATE SODIUM 100 MG CAP PO SCH ×2 (09:00→20:41)
[2016-07-31] MEDS ORDERED: ONDANSETRON 4 MG TAB PO PRN (09:00)
[2016-07-31] MEDS: ASPIRIN (EC) 325 MG TAB PO SCH ×2 (09:00→20:41)
--- NOTE | 2016-07-31 09:00 | PN ---
Date/Time of Note Date/Time of Note DATE: 07/31/16 TIME: 08:59 Assessment/Plan Lines/Catheters IV Catheter Type (from Nrsg): Peripheral IV Alexander in Place (from Nrsg): Yes Assessment/Plan Assessment/Plan Stable POD #1, s/p right anterior EUSEBIO -d/c abx -pain meds as needed -ASA/SCDs for DVT prophylaxis -OOB with PT -check AM labs -drain removed -d/c planning. Would like to go home upon discharge Subjective 24 Hr Interval Summary No acute overnight events. Having mild pain. Began PT yesterday and was able to walk down [place]. H&H stable. VSS, afebrile. Would like to go home upon discharge. Exam/Review of Systems Vital Signs Vitals Vital Signs Date Time Temp Pulse Resp B/P Pulse Ox O2 Delivery O2 Flow Rate FiO2 07/31/16 07:00 97.8 55 20 142/65 98 07/30/16 15:15 Room Air 07/30/16 10:13 2.0 Intake and Output 07/30/16 07/30/16 07/31/16 15:00 23:00 07:00 Intake Total 3108.3 ml 988.3 ml 1450 ml Output Total 1020 ml 1000 ml 2060 ml Balance 2088.3 ml -11.7 ml -610 ml Exam Free Text/Dictation Hemovac: 180cc Dressing dry Mild ecchymosis around the surgical site Incision clean, dry, and intact without redness or drainage 5/5 Quadriceps, Tibialis Anterior, EHL, Gastroc, Soleus, Peroneals Normal sensation Palpable DT/PT, CR <2 sec No distal edema Results Result Diagram: 07/31/16 0445 07/31/16 0445 SAVANNAH BRITO PA-C Jul 31, 2016 09:00
[2016-07-31] MEDS: HYDROCODONE/APAP (5/325) TAB PO PRN ×2 (10:04→22:59)
[2016-07-31] MEDS: MAGNESIUM HYDROXIDE 30ML CUP PO PRN (12:36)
--- NOTE | 2016-07-31 15:20 | PDOCDIS ---
Discharge Instructions DIAGNOSIS Discharge Diagnosis: s/p right anterior EUSEBIO CONDITION Patient Condition: Good HOME CARE INSTRUCTIONS: Diet Instructions: Regular ACTIVITY: Activity Restrictions: Slowly Increase Activity Rest between Activity Avoid heavy lifting Do not operate Machinery Do not operate Power Tool Avoid Heavy Housework Keep Limb Elevated Bathing Restrictions: Shower FOLLOW UP/APPOINTMENTS Appointments follow up in the office on 08/09/16 OTHER ORDERS: Other Orders: S/P Anterior EUSEBIO Physical Therapy: Three times per week at home x 2 weeks Daily in Rehab/SNF WB STATUS: WBAT Strengthening exercises for both upper and un-operated lower extremities. 1. Gait training with front wheeled walker 2. Wide base gait, no pivot turns. 3. Abductor strengthening. 4. Quadriceps and hamstring strengthening. 5. May switch to cane in contra lateral hand 6 weeks after surgery. 6. Physical Therapy can open case if nursing is not available. 7. Ice Packs while at rest to surgical wound for 20 minutes, 3 times/day. 8. Patient requires mobile SCDs to reduce risk of developing DVT following EUSEBIO. Patient will use the mobile SCDs for 30 days postoperatively. Hip Precautions: No posterior hip precautions. Bathing assistance by home health aide twice weekly if Medicare patient. Occupational Therapy: Evaluation for assistive devices and ADL training. Wound Care: Keep incision dry & covered with Tegaderm until first visit with Dr. Brown Anticoagulation Orders: Enteric Coated Aspirin 325 mg po bid x 6 weeks from date of surgery Follow-up:Call for an appointment with Dr. Brown in 1 week after discharged from hospital at DME Orders: ANDREWS, 3-in-1 Commode, Mobile SCDs SAVANNAH BRITO PA-C Jul 31, 2016 15:20
[2016-07-31] MEDS ORDERED: ASPI325T32 PO (15:22)
[2016-07-31] MEDS ORDERED: PANT40TA4 PO (15:22)
[2016-07-31] MEDS ORDERED: HYDR-3498 PO (15:22)
[2016-07-31] MEDS ORDERED: TRAM50TA2 PO (15:22)
[2016-07-31 20:08] VITALS: BP 153/67; RESP 18
[2016-07-31] MEDS: ATORVASTATIN 10 MG TAB PO SCH (20:41)
[2016-08-01] MEDS: oxyCODONE 5 MG TAB PO PRN (01:06)
[2016-08-01] MEDS: LACTATED RINGER'S 1,000 ML IV SCH ×3 (01:59→17:59)
[2016-08-01 05:17] LABS: HEMATOCRIT 32.9 % (42.0-52.0); HEMOGLOBIN 10.5 g/dl (14.0-18.0)
[2016-08-01 05:47] LABS: CALCIUM 8.5 mg/dl (8.4-10.2); CREATININE 0.87 mg/dl (0.61-1.24); POTASSIUM 4.2 mmol/L (3.5-5.1)
[2016-08-01] MEDS: traMADol 50 MG TAB PO SCH ×4 (06:12→23:54)
[2016-08-01] MEDS: PANTOPRAZOLE (EC) 40 MG TAB PO SCH ×2 (06:12→18:13)
[2016-08-01] MEDS: HYDROCODONE/APAP (5/325) TAB PO PRN ×2 (08:06→22:47)
[2016-08-01] MEDS: DOCUSATE SODIUM 100 MG CAP PO SCH ×2 (08:06→21:12)
[2016-08-01] MEDS: ASPIRIN (EC) 325 MG TAB PO SCH ×2 (08:06→21:12)
[2016-08-01 08:09] VITALS: BP 145/65; RESP 21
--- NOTE | 2016-08-01 09:06 | PN ---
Date/Time of Note Date/Time of Note DATE: 08/01/16 TIME: 09:05 Assessment/Plan Lines/Catheters IV Catheter Type (from Nrsg): Saline Lock Alexander in Place (from Nrsg): No Assessment/Plan Assessment/Plan Stable POD #2, s/p right anterior EUSEBIO -pain meds as needed -ASA/SCDs -OOB with PT -check AM labs -dressing changed -tentative plan discharge home tomorrow Subjective 24 Hr Interval Summary No acute overnight events. Having increased pain today but making progress with PT. VSS, afebrile. Would like to go home tomorrow. Exam/Review of Systems Vital Signs Vitals Vital Signs Date Time Temp Pulse Resp B/P Pulse Ox O2 Delivery O2 Flow Rate FiO2 08/01/16 08:09 97.9 62 21 145/65 98 07/30/16 15:15 Room Air 07/30/16 10:13 2.0 Intake and Output 07/31/16 07/31/16 08/01/16 15:00 23:00 07:00 Intake Total 250 ml 1160 ml 840 ml Output Total 600 ml 1500 ml Balance 250 ml 560 ml -660 ml Exam Free Text/Dictation Dressing dry Moderate ecchymosis around the incision. Incision clean, dry, and intact without redness or drainage 5/5 Quadriceps, Tibialis Anterior, EHL, Gastroc, Soleus, Peroneals Normal sensation Palpable DT/PT, CR <2 sec No distal edema Results Result Diagram: 08/01/16 0435 08/01/16 0435 SAVANNAH BRITO PA-C Aug 01, 2016 09:06
--- NOTE | 2016-08-01 11:19 | CONS ---
Date/Time of Note Date/Time of Note DATE: 08/01/16 TIME: 11:17 Assessment/Plan Assessment/Plan Additional Assessment/Plan 1. Doing very well post op left hip replacement. 2. Hyperlipidemia, statin has been continued 3. Labs rev Consultation Date/Type/Reason Admit Date/Time Jul 30, 2016 at 05:34 Detailed Summary Respiratory: No shortness of breath Cardiovascular: No chest pain, No lightheadedness, No orthopenea Gastrointestinal: No no complaints Genitourinary: No no complaints Musculoskeletal: bone/joint pain (mild right hip pain, less then yesterday) Exam/Review of Systems Vital Signs Vitals Vital Signs Date Time Temp Pulse Resp B/P Pulse Ox O2 Delivery O2 Flow Rate FiO2 08/01/16 08:09 97.9 62 21 145/65 98 07/30/16 15:15 Room Air 07/30/16 10:13 2.0 Intake and Output 07/31/16 07/31/16 08/01/16 15:00 23:00 07:00 Intake Total 250 ml 1160 ml 840 ml Output Total 600 ml 1500 ml Balance 250 ml 560 ml -660 ml Exam Neck: No jvd Respiratory: clear to auscultation Cardiovascular: regular rate and rhythm Gastrointestinal: soft Extremities: No edema (and no calf tend) Results Result Diagram: 08/01/16 0435 08/01/16 0435 Results 24 hrs Laboratory Tests Test 08/01/16 04:35 Hemoglobin 10.5 L Hematocrit 32.9 L Sodium Level 137 Potassium Level 4.2 Chloride Level 106 Carbon Dioxide Level 27 Anion Gap 8 Blood Urea Nitrogen 17 Creatinine 0.87 Glucose Level 99 Calcium Level 8.5 Medications Medications Current Medications Miscellaneous Information 1 ea NOTE XX ; Start 07/30/16 at 14:00; Stop 08/03/16 at 13:59 Atorvastatin Calcium 10 mg 10 mg QHS PO Last administered on 07/31/16 20:41; Admin Dose 10 MG; Start 07/30/16 at 21:00 Lactated Ringer's (Lr) 1,000 ml @ 125 mls/hr Q8H IV Last administered on 02:32; Admin Dose 125 MLS/HR; Start 07/30/16 at 09:59 Tramadol HCl (Ultram) 50 mg Q6 PO Last administered on 08/01/16 06:12; Admin Dose 50 MG; Start 07/30/16 at 12:00; Stop 08/02/16 at 11:59 Acetaminophen/ Hydrocodone Bitart ([place] (5/325)) 1 tab Q4H PRN PO PAIN LEVEL 1 -3; Start 07/30/16 at 10:00 Acetaminophen/ Hydrocodone Bitart ([place] (5/325)) 2 tab Q4H PRN PO PAIN LEVEL 4 -7 Last administered on 08/01/16 08:06; Admin Dose 2 TAB; Start 07/30/16 at 10: 00 Oxycodone HCl (Roxicodone) 10 mg Q4H PRN PO PAIN LEVEL 4-7 Last administered on 08/01/16 01:06; Admin Dose 10 MG; Start 07/30/16 at 10:00 Hydromorphone HCl (Dilaudid) 1 mg Q3H PRN IV PAIN LEVEL 8-10; Start 07/30/16 at 10:00 Ondansetron HCl (Zofran Inj) 4 mg Q6H PRN IV NAUSEA AND/OR VOMITING; Start at 10:00 Bisacodyl (Dulcolax Supp) 10 mg Q12H PRN [place] CONSTIPATION; Start 07/30/16 at 10: 00 Magnesium Hydroxide (Milk Of Mag) 30 ml BID PRN PO CONSTIPATION Last administered on 07/31/16 12:36; Admin Dose 30 ML; Start 07/30/16 at 10:00 Sodium Biphosphate/ Sodium Phosphate (Fleet Enema) 133 ml DAILY PRN [place] CONSTIPATION; Start 07/30/16 at 10:00 Docusate Sodium (Colace) 100 mg BID PO Last administered on 08/01/16 08:06; Admin Dose 100 MG; Start 07/30/16 at 21:00 Diphenhydramine HCl (Benadryl) 25 mg Q6H PRN PO PRURITUS; Start 07/30/16 at 10: 00 Aspirin (Ecotrin) 325 mg BID PO Last administered on 08/01/16 08:06; Admin Dose 325 MG; Start 07/31/16 at 09:00 Pantoprazole (Protonix Tab) 40 mg BID@18 PO Last administered on 08/01/16 06:12; Admin Dose 40 MG; Start 07/30/16 at 18:00 Ondansetron HCl (Zofran Tab) 4 mg Q6H PRN PO NAUSEA AND/OR VOMITING; Start at 09:00 GLENROY XIONG MD Aug 01, 2016 11:18
[2016-08-01] MEDS: MAGNESIUM HYDROXIDE 30ML CUP PO PRN (12:37)
[2016-08-01 19:30] VITALS: BP 140/65; RESP 18
[2016-08-01] MEDS: ATORVASTATIN 10 MG TAB PO SCH (21:12)
[2016-08-02] MEDS: LACTATED RINGER'S 1,000 ML IV SCH ×2 (01:08→09:59)
[2016-08-02] MEDS: PANTOPRAZOLE (EC) 40 MG TAB PO SCH (05:08)
[2016-08-02] MEDS: traMADol 50 MG TAB PO SCH (05:11)
[2016-08-02 05:27] LABS: HEMATOCRIT 33.4 % (42.0-52.0); HEMOGLOBIN 10.8 g/dl (14.0-18.0)
[2016-08-02 05:52] LABS: CALCIUM 8.9 mg/dl (8.4-10.2); CREATININE 0.91 mg/dl (0.61-1.24); POTASSIUM 4.4 mmol/L (3.5-5.1)
[2016-08-02 07:00] VITALS: BP 116/60; RESP 18
[2016-08-02] MEDS: HYDROCODONE/APAP (5/325) TAB PO PRN ×2 (07:06→12:57)
[2016-08-02] MEDS: ASPIRIN (EC) 325 MG TAB PO SCH (09:01)
[2016-08-02] MEDS: DOCUSATE SODIUM 100 MG CAP PO SCH (09:01)
--- NOTE | 2016-08-02 09:02 | PN ---
Date/Time of Note Date/Time of Note DATE: 08/02/16 TIME: 09:00 Assessment/Plan Lines/Catheters IV Catheter Type (from Nrsg): Saline Lock Alexander in Place (from Nrsg): No Assessment/Plan Assessment/Plan POD #3, s/p right anterior EUSEBIO -pain meds as needed -ASA/SCDs for DVT prophylaxis -OOB with PT -dressing changed -d/c home today -follow up in the office in 1 week Subjective 24 Hr Interval Summary No acute overnight events. Denies significant pain. Progressing with PT. Ecchymosis over thigh improving. VSS, afebrile. Will plan to discharge home today. Exam/Review of Systems Vital Signs Vitals Vital Signs Date Time Temp Pulse Resp B/P Pulse Ox O2 Delivery O2 Flow Rate FiO2 08/02/16 07:00 97.8 66 18 116/60 95 07/30/16 15:15 Room Air 07/30/16 10:13 2.0 Intake and Output 08/01/16 08/01/16 08/02/16 15:00 23:00 07:00 Intake Total 900 ml 480 ml Balance 900 ml 480 ml Exam Free Text/Dictation Ecchymosis improving Dressing dry Incision clean, dry, and intact without redness or drainage 5/5 Quadriceps, Tibialis Anterior, EHL, Gastroc, Soleus, Peroneals Normal sensation Palpable DT/PT, CR <2 sec No distal edema Results Result Diagram: 08/02/16 04308/02/16429 SAVANNAH BRITO PA-C Aug 02, 2016 09:02
--- NOTE | 2016-08-02 09:25 | CONS ---
Date/Time of Note Date/Time of Note DATE: 08/02/16 TIME: 09:22 Assessment/Plan Assessment/Plan Chief Complaint/Hosp Course 1. He is 3 days postop for right total hip arthroplasty. He is doing well. 2. The patient is up walking with physical therapy and if he is cleared by them he can be discharged home today. Problems: Consultation Date/Type/Reason Admit Date/Time Jul 30, 2016 at 05:34 Initial Consult Date 24 HR Interval Summary Free Text/Dictation He is now 3 days postop a right total hip replacement. He is up walking with physical therapy. Constitutional: improved, no complaints Exam/Review of Systems Vital Signs Vitals Vital Signs Date Time Temp Pulse Resp B/P Pulse Ox O2 Delivery O2 Flow Rate FiO2 08/02/16 07:00 97.8 66 18 116/60 95 07/30/16 15:15 Room Air 07/30/16 10:13 2.0 Intake and Output 08/01/16 08/01/16 08/02/16 14:59 22:59 06:59 Intake Total 900 ml 480 ml Balance 900 ml 480 ml Exam Constitutional: alert, oriented, well developed Neck: non-tender, supple Respiratory: clear to auscultation, normal air movement Cardiovascular: nl pulses, regular rate and rhythm Musculoskeletal: nl extremities to inspection Results Result Diagram: 08/02/16 0430 08/02/16 0430 Results 24 hrs Laboratory Tests Test 08/02/16 04:30 Hemoglobin 10.8 L Hematocrit 33.4 L Sodium Level 137 Potassium Level 4.4 Chloride Level 103 Carbon Dioxide Level 28 Anion Gap 10 Blood Urea Nitrogen 15 Creatinine 0.91 Glucose Level 98 Calcium Level 8.9 Medications Medications Current Medications Miscellaneous Information 1 ea NOTE XX ; Start 07/30/16 at 14:00; Stop 08/03/16 at 13:59 Atorvastatin Calcium 10 mg 10 mg QHS PO Last administered on 08/01/16 21:12; Admin Dose 10 MG; Start 07/30/16 at 21:00 Lactated Ringer's (Lr) 1,000 ml @ 125 mls/hr Q8H IV Last administered on 02:32; Admin Dose 125 MLS/HR; Start 07/30/16 at 09:59 Tramadol HCl (Ultram) 50 mg Q6 PO Last administered on 08/02/16 05:11; Admin Dose 50 MG; Start 07/30/16 at 12:00; Stop 08/02/16 at 11:59 Acetaminophen/ Hydrocodone Bitart ([place] (5/325)) 1 tab Q4H PRN PO PAIN LEVEL 1 -3; Start 07/30/16 at 10:00 Acetaminophen/ Hydrocodone Bitart ([place] (5/325)) 2 tab Q4H PRN PO PAIN LEVEL 4 -7 Last administered on 08/02/16 07:06; Admin Dose 2 TAB; Start 07/30/16 at 10: 00 Oxycodone HCl (Roxicodone) 10 mg Q4H PRN PO PAIN LEVEL 4-7 Last administered on 08/01/16 01:06; Admin Dose 10 MG; Start 07/30/16 at 10:00 Hydromorphone HCl (Dilaudid) 1 mg Q3H PRN IV PAIN LEVEL 8-10; Start 07/30/16 at 10:00 Ondansetron HCl (Zofran Inj) 4 mg Q6H PRN IV NAUSEA AND/OR VOMITING; Start at 10:00 Bisacodyl (Dulcolax Supp) 10 mg Q12H PRN [place] CONSTIPATION; Start 07/30/16 at 10: 00 Magnesium Hydroxide (Milk Of Mag) 30 ml BID PRN PO CONSTIPATION Last administered on 08/01/16 12:37; Admin Dose 30 ML; Start 07/30/16 at 10:00 Sodium Biphosphate/ Sodium Phosphate (Fleet Enema) 133 ml DAILY PRN [place] CONSTIPATION; Start 07/30/16 at 10:00 Docusate Sodium (Colace) 100 mg BID PO Last administered on 08/02/16 09:01; Admin Dose 100 MG; Start 07/30/16 at 21:00 Diphenhydramine HCl (Benadryl) 25 mg Q6H PRN PO PRURITUS; Start 07/30/16 at 10: 00 Aspirin (Ecotrin) 325 mg BID PO Last administered on 08/02/16 09:01; Admin Dose 325 MG; Start 07/31/16 at 09:00 Pantoprazole (Protonix Tab) 40 mg BID@ PO Last administered on 08/02/16 05:08; Admin Dose 40 MG; Start 07/30/16 at 18:00 Ondansetron HCl (Zofran Tab) 4 mg Q6H PRN PO NAUSEA AND/OR VOMITING; Start at 09:00 SOPHIE TA MD Aug 02, 2016 09:25
--- NOTE | 2016-08-02 15:49 | DS ---
DATE OF ADMISSION: 07/30/2016 DATE OF DISCHARGE: 08/02/2016 CONDITION ON DISCHARGE: Stable. ADMITTING DIAGNOSIS: Right hip osteoarthritis. DISCHARGE DIAGNOSIS: Status post right anterior total hip arthroplasty. PROCEDURE PERFORMED: Right anterior total hip arthroplasty. HOSPITAL COURSE: This is an 89-year-old male who had previously underwent a left anterior EUSEBIO, who presented to clinic complaining of right hip pain. X- rays demonstrated advanced osteoarthritis of the right hip and it was thought he would benefit from right anterior total hip arthroplasty. On 07/30/2016, the patient was admitted and taken to the operating room where he underwent a right anterior total hip arthroplasty. There were no intraoperative complications. The patient tolerated the procedure well. He was taken to the recovery room in stable condition. Pain was well controlled with oral pain medication. He was started on aspirin and SCDs for DVT prophylaxis. He remained hemodynamically stable and neurovascularly intact throughout his hospital course. He began physical therapy on postoperative day 1 and continued to make good progress. He was deemed stable for discharge home on postoperative day #3. Prior to discharge, the incision was inspected and noted to be clean, dry and intact. Dressing changes were done prior to the patient going home. LABORATORY ANALYSIS: Hemoglobin 10.8, hematocrit 32.4. Chemistry panel was within normal limits. DISCHARGE MEDICATIONS: 1. [place] 5/325 mg. 2. Tramadol 50 mg. 3. Aspirin 325 mg. 4. Protonix 40 mg. In addition, the patient is to resume all of his normal home medications. DISCHARGE INSTRUCTIONS: The patient will be discharged home in stable condition. He is to resume a normal diet. He is weightbearing as tolerated on the right lower extremity. He will begin physical therapy with home health. He will be discharged home with the medications noted above and is to resume all of his normal home medications. The patient is to call the office or go to the emergency room for any concerns including increased redness, swelling, drainage, fever or any concern regarding the operation or site of incision. FOLLOWUP: The patient is to follow up in the office on 08/09/2016. Dictated By: SAVANNAH MCDONALD for [place] [facility] Conf#: [id number] DID#: [id number]
== END 2016-08-02 15:40 | disposition home health service (06) | DRG 470 ==
LOC: REC 05:34 → MS1 11:08
PROVIDERS: ADMIT Orthopaedic Surgery; ATTEND Orthopaedic Surgery
PROC: 0SR904A Replacement of Right Hip Joint with Ceramic on Polyethylene Synthetic Substitute, Uncemented, Open Approach (ICD-10-PCS; principal; 2016-07-30 07:00)
DX: M16.11 Unilateral primary osteoarthritis, right hip (principal); Z96.642 Presence of left artificial hip joint; E78.5 Hyperlipidemia, unspecified
CPT/HCPCS: 72170; 73500; 73530; 80048; 81003; 85014; 85018; 86850; 86900; 86901; 86920; 87081; 87086; 88304; 88311; 97110; 97116; 97162; 97166; 97530; C1776; J0690; J1100; J2250; J2405; J2710; J3010; J3370; J7120

== ENCOUNTER → 2016-08-09 | Outpatient (CLI) | payer MEDICARE, BC ==
[~2016-08-09] MED LIST changes: +HYDR-3498 PO; -HYDR-906 PO; -oxyCODONE (CR) 10 MG TAB [oxyCONTIN] X1 DOSE PO SCH
--- NOTE | 2016-08-09 14:04 | HKNOTE ---
DATE OF SERVICE: 08/09/2016 INTERVAL HISTORY: The patient presents today for his first postoperative evaluation. He is 10 days status post right anterior total hip arthroplasty. He is doing well overall. He denies any fevers or chills. He is having some mild pain and discomfort with ambulation. He is taking aspirin twice daily for DVT prophylaxis. He presents today for his first postoperative evaluation. PHYSICAL EXAMINATION: GENERAL: Today, he is alert and oriented x4 and in no acute distress. EXTREMITIES: Exam of the incision demonstrates it to be clean, dry and intact. [place] are in plac e. There is no erythema, warmth, pus or drainage noted. Homans sign is negative. There is no disc omfort with passive range of motion of the right hip. Compartments are otherwise soft. He is neuro vascularly intact distally. IMAGING: X-rays of the right hip were obtained today and reviewed by me. They demonstrate good giovanni tomic alignment with no fractures or dislocations identified. ASSESSMENT: Ten days status post right anterior total hip arthroplasty. PLAN: The collette were removed today and Steri-Strips were applied. He is to continue physical the rapy with home health and ambulate as tolerated. He is to continue aspirin twice daily for DVT prop hylaxis. We will see him back in 4 weeks for repeat evaluation. The patient is to call the office in the meantime if he has any concerns. Dictated By: SAVANNAH MCDONALD for [place] [facility] Conf#: [id number] DID#: [id number]
--- NOTE | 2016-08-09 14:39 | RADRPT ---
PROCEDURE: XR Right hip and pelvis. CLINICAL INDICATION: Right hip pain. Pelvic pain. TECHNIQUE: Two views. Frontal pelvis and frontal right hip. COMPARISON: 06/26/2016. FINDINGS: There are bilateral total hip arthroplasties which appears satisfactory with no fracture, dislocatio n, or loosening. The soft tissues are normal. There are degenerative changes of the lower lumbar spine with osteophytes noted. The sacroiliac joints are unremarkable. There is no lytic or blastic lesion. IMPRESSION: 1. Satisfactory postoperative appearance of both hips. 2. Degenerative changes of the lower lumbar spine. RPTAT: QQ .Josesito Ding MD, MD Date Time Electronically viewed and signed by .Josesito Ding MD, MD on 08/09/2016 14:39 .R/
== END | disposition home or self-care (01) ==
LOC: HKI 10:37
PROVIDERS: ATTEND Orthopaedic Surgery
DX: Z47.1 Aftercare following joint replacement surgery (principal); Z96.641 Presence of right artificial hip joint
CPT/HCPCS: 73502

== ENCOUNTER → 2016-09-09 | Outpatient (CLI) | payer MEDICARE, BC ==
--- NOTE | 2016-09-09 19:22 | RADRPT ---
PROCEDURE: XR Right hip and pelvis. CLINICAL INDICATION: Right hip pain. Pelvic pain. TECHNIQUE: Two views. Frontal pelvis and frontal right hip. COMPARISON: 08/09/2016. FINDINGS: There are bilateral total hip arthroplasties. These appears satisfactory with no fracture, dislocat ion, or loosening. There is no lytic or blastic lesion. The soft tissues are unremarkable. There are degenerative rambo nges of the lower lumbar spine. IMPRESSION: 1. Satisfactory postoperative appearance of both hips. 2. Degenerative changes of the lower lumbar spine. RPTAT: QQ .Josesito Ding MD, MD Date Time Electronically viewed and signed by .Josesito Ding MD, MD on 09/09/2016 19:22 .R/
== END | disposition home or self-care (01) ==
LOC: HKI 10:38
PROVIDERS: ATTEND Orthopaedic Surgery
DX: Z47.1 Aftercare following joint replacement surgery (principal); M16.11 Unilateral primary osteoarthritis, right hip; Z96.641 Presence of right artificial hip joint
CPT/HCPCS: 73502